=== PATIENT | female | born 1955 | race Caucasian/White ===

== ENCOUNTER → 2017-05-25 | Outpatient (CLI) | payer BC ==
[~2017-05-25] MED LIST: ACET325 PO; ALBU90OI61 INH; ANAS1 PO; CALCIUM PO; CLON.5 PO; GUAI600T33 PO; IBUP400 PO; LEVFLO500 PO; PRED20 PO; PROBIOTIC1 EAC1 PO; Prednisone20 MG PO; VENLAFAXINE HCL75 MG PO; VITAMIN D-32000 UNIT PO; Zithromax250 MG PO
[2017-05-27 12:03] LABS: HPV Genotype 16 Not Detected (NOTDET); HPV Genotype 18 Not Detected (NOTDET)
[2017-06-14 09:50] LABS: HPV High Risk Other Not Detected (NOTDET)
== END | disposition home or self-care (01) ==
LOC: LAB 15:38
PROVIDERS: Obstetrics & Gynecology Gynecology
DX: Z12.4 Encounter for screening for malignant neoplasm of cervix (principal)
CPT/HCPCS: 87624; G0123

== ENCOUNTER 2018-12-22 11:32 | Emergency (ER) | payer MEDICARE, OTHER ==
[~2018-12-22] VITALS: Ht 162.6 cm; Wt 63.5 kg
[2018-12-22 12:31] LABS: BASOPHILS ABSOLUTE AUTO 0.07 K/mm3 (0.00-0.23); BASOPHILS PERCENT AUTO 1 % (0-2); EOSINOPHILS ABSOLUTE AUTO 0.11 K/mm3 (0.00-0.68); EOSINOPHILS PERCENT AUTO 1 % (0-6); Hematocrit 46.5 % (33.0-51.0); Hemoglobin 15.2 g/dL (11.5-16.0); IMMATURE GRAN ABSOLUTE AUTO 0.03 K/mm3 (0.00-0.10); IMMATURE GRAN PERCENT AUTO 0 % (0-1); LYMPHOCYTES ABSOLUTE AUTO 0.88 K/mm3 (0.84-5.20); LYMPHOCYTES PERCENT AUTO 7 % (21-46); MONOCYTES ABSOLUTE AUTO 1.35 K/mm3 (0.16-1.47); MONOCYTES PERCENT AUTO 11 % (4-13); Mean Corpuscular HGB 31.3 pg (26.0-34.0); Mean Corpuscular HGB Conc 32.7 g/dL (31.5-36.5); Mean Corpuscular Volume 96 fL (80-100); Mean Platelet Volume 10.7 fL (9.1-12.4); NEUTROPHILS ABSOLUTE AUTO 9.63 K/mm3 (1.96-9.15); NEUTROPHILS PERCENT AUTO 80 % (41-73); Platelet Count 189 K/mm3 (150-400); RDW Coefficient Variation 13.1 % (11.7-14.2); RDW Standard Deviation 46.7 fL (35.1-46.3); Red Blood Cell Count 4.86 M/mm3 (3.80-5.20); White Blood Cell Count 12.07 K/mm3 (4.00-11.30)
[2018-12-22 12:44] LABS: Alanine Aminotransfer (ALT/SGP 15 U/L (12-78); Albumin, Blood 3.6 g/dL (3.4-5.0); Alk Phos 97 U/L (50-136); Anion Gap 4 mmol/L (6-16); Aspartate Aminotrans (AST/SGOT 15 U/L (12-37); Bilirubin, Total 0.9 mg/dL (0.1-1.0); Blood Urea Nitrogen 10 mg/dL (8-24); Bun/Creatinine Ratio 14.3 (12.0-20.0); CO2, Blood 27 mmol/L (21-32); Calcium, Blood 9.1 mg/dL (8.5-10.1); Chloride, Blood 107 mmol/L (98-108); Globulin, Blood 3.7 g/dL (2.2-4.0); Glomerular Filtration Rate >60 (60-); Glucose, Blood 102 mg/dL (70-99); Potassium, Blood 4.2 mmol/L (3.5-5.5); Sodium, Blood 138 mmol/L (136-145); Total Protein, Blood 7.3 g/dL (6.4-8.2)
[2018-12-22] MEDS ORDERED: NYST237S MT (14:03)
== END 2018-12-22 14:11 | disposition home or self-care (01) ==
LOC: ER 11:32
PROVIDERS: Physician Assistant
DX: J02.9 Acute pharyngitis, unspecified (principal); J38.7 Other diseases of larynx; Z88.8 Allergy status to other drugs, medicaments and biological substances; Z79.899 Other long term (current) drug therapy; Z79.52 Long term (current) use of systemic steroids; J44.9 Chronic obstructive pulmonary disease, unspecified; Z85.3 Personal history of malignant neoplasm of breast; F17.210 Nicotine dependence, cigarettes, uncomplicated
CPT/HCPCS: 70491; 80053; 85025; 87081; 87430; 96360-59; 99284-25; J1100; J7120; Q9967

== ENCOUNTER 2019-09-23 17:11 | Emergency (ER) | payer MEDICARE, OTHER ==
[~2019-09-23] VITALS: Ht 162.6 cm; Wt 61.2 kg
[~2019-09-23 17:11] MED LIST changes: +NYST237S MT
[2019-09-23] MEDS ORDERED: Robaxin-750750 MG PO (18:49)
== END 2019-09-23 19:10 | disposition home or self-care (01) ==
LOC: ER 17:11
DX: M79.662 Pain in left lower leg (principal); Z88.8 Allergy status to other drugs, medicaments and biological substances; Z88.6 Allergy status to analgesic agent; Z79.899 Other long term (current) drug therapy; J44.9 Chronic obstructive pulmonary disease, unspecified; Z85.3 Personal history of malignant neoplasm of breast; F17.210 Nicotine dependence, cigarettes, uncomplicated
CPT/HCPCS: 93971; 99283-25; A9270

== ENCOUNTER → 2021-06-28 | Outpatient (CLI) | payer MEDICARE, OTHER ==
[~2021-06-28] MED LIST changes: +Robaxin-750750 MG PO
[2021-06-28 13:50] LABS: BASOPHILS ABSOLUTE AUTO 0.06 K/mm3 (0.00-0.23); BASOPHILS PERCENT AUTO 1 % (0-2); EOSINOPHILS ABSOLUTE AUTO 0.11 K/mm3 (0.00-0.68); EOSINOPHILS PERCENT AUTO 2 % (0-6); Hematocrit 44.2 % (33.0-51.0); Hemoglobin 14.6 g/dL (11.5-16.0); IMMATURE GRAN ABSOLUTE AUTO 0.01 K/mm3 (0.00-0.10); IMMATURE GRAN PERCENT AUTO 0 % (0-1); LYMPHOCYTES ABSOLUTE AUTO 1.37 K/mm3 (0.84-5.20); LYMPHOCYTES PERCENT AUTO 20 % (21-46); MONOCYTES ABSOLUTE AUTO 0.57 K/mm3 (0.16-1.47); MONOCYTES PERCENT AUTO 8 % (4-13); Mean Corpuscular HGB 30.9 pg (26.0-34.0); Mean Corpuscular Volume 93 fL (80-100); Mean Platelet Volume 10.7 fL (9.1-12.4); NEUTROPHILS ABSOLUTE AUTO 4.88 K/mm3 (1.96-9.15); NEUTROPHILS PERCENT AUTO 70 % (41-73); Platelet Count 206 K/mm3 (150-400); RDW Coefficient Variation 13.3 % (11.7-14.2); RDW Standard Deviation 45.9 fL (35.1-46.3); Red Blood Cell Count 4.73 M/mm3 (3.80-5.20)
[2021-06-28 14:02] LABS: Alanine Aminotransfer (ALT/SGP 26 U/L (12-78); Albumin/Globulin Ratio 1.3 (0.8-1.8); Alk Phos 77 U/L (40-126); Anion Gap 11 mmol/L (6-16); Aspartate Aminotrans (AST/SGOT 20 U/L (12-37); Bilirubin, Total 0.7 mg/dL (0.1-1.0); Blood Urea Nitrogen 16 mg/dL (8-24); Bun/Creatinine Ratio 22.2 (12.0-20.0); CO2, Blood 27 mmol/L (21-32); Calcium, Blood 9.2 mg/dL (8.5-10.1); Chloride, Blood 101 mmol/L (98-108); Creatinine, Blood 0.72 mg/dL (0.40-1.00); Globulin, Blood 3.1 g/dL (2.2-4.0); Glomerular Filtration Rate >60 (60-); Glucose, Blood 73 mg/dL (70-99); Potassium, Blood 4.4 mmol/L (3.5-5.5); Sodium, Blood 139 mmol/L (136-145); Total Protein, Blood 7.1 g/dL (6.4-8.2)
== END ==
LOC: LAB SHORT 13:43
PROVIDERS: Physician Assistant
DX: R50.9 Fever, unspecified (principal)
CPT/HCPCS: 80053; 85025

== ENCOUNTER 2021-08-04 20:31 | Inpatient (IN) | payer MEDICARE, OTHER ==
[~2021-08-04] VITALS: Ht 162.6 cm; Wt 54.2 kg
[2021-08-04 21:19] LABS: BASOPHILS ABSOLUTE AUTO 0.01 K/mm3 (0.00-0.23); BASOPHILS PERCENT AUTO 0 % (0-2); EOSINOPHILS PERCENT AUTO 0 % (0-6); Hematocrit 41.6 % (33.0-51.0); Hemoglobin 13.5 g/dL (11.5-16.0); IMMATURE GRAN ABSOLUTE AUTO 0.02 K/mm3 (0.00-0.10); IMMATURE GRAN PERCENT AUTO 0 % (0-1); LYMPHOCYTES ABSOLUTE AUTO 0.56 K/mm3 (0.84-5.20); LYMPHOCYTES PERCENT AUTO 9 % (21-46); MONOCYTES ABSOLUTE AUTO 0.11 K/mm3 (0.16-1.47); MONOCYTES PERCENT AUTO 2 % (4-13); Mean Corpuscular HGB 29.7 pg (26.0-34.0); Mean Corpuscular HGB Conc 32.5 g/dL (31.5-36.5); Mean Corpuscular Volume 92 fL (80-100); Mean Platelet Volume 10.4 fL (9.1-12.4); NEUTROPHILS ABSOLUTE AUTO 5.51 K/mm3 (1.96-9.15); NEUTROPHILS PERCENT AUTO 89 % (41-73); Platelet Count 225 K/mm3 (150-400); RDW Coefficient Variation 12.9 % (11.7-14.2); RDW Standard Deviation 43.5 fL (35.1-46.3); Red Blood Cell Count 4.54 M/mm3 (3.80-5.20); White Blood Cell Count 6.21 K/mm3 (4.00-11.30)
[2021-08-04 21:39] LABS: Alanine Aminotransfer (ALT/SGP 22 U/L (12-78); Albumin, Blood 3.7 g/dL (3.4-5.0); Alk Phos 78 U/L (50-136); Anion Gap 6 mmol/L (6-16); Aspartate Aminotrans (AST/SGOT 14 U/L (12-37); Bilirubin, Total 0.3 mg/dL (0.1-1.0); Blood Urea Nitrogen 20 mg/dL (8-24); Bun/Creatinine Ratio 38.3 (12.0-20.0); CO2, Blood 27 mmol/L (21-32); Calcium, Blood 9.7 mg/dL (8.5-10.1); Chloride, Blood 105 mmol/L (98-108); Creatinine, Blood 0.52 mg/dL (0.40-1.00); Globulin, Blood 3.8 g/dL (2.2-4.0); Glomerular Filtration Rate >60 (60-); Glucose, Blood 158 mg/dL (70-99); Sodium, Blood 138 mmol/L (136-145); Total Protein, Blood 7.5 g/dL (6.4-8.2)
[2021-08-04 23:32] LABS: PCO2 Venous 45.9 mmHg (38-42); PO2 Venous 46.7 mmHg (38-42); pH Blood Venous 7.41 (7.34-7.37)
[2021-08-05 02:53] LABS: Influenza A, PCR NEGATIVE (NEGATIVE); Influenza B, PCR NEGATIVE (NEGATIVE); Resp Syncytial Virus, PCR NEGATIVE (NEGATIVE); SARS-Cov-2 (COVID-19) PCR, MMC NEGATIVE (NEGATIVE)
[2021-08-05] MEDS ORDERED: B-12500 MC2 PO (03:02)
[2021-08-05] MEDS ORDERED: CALCIUM 500 MG1 EAC2 PO (03:02)
[2021-08-05 05:08] LABS: BASOPHILS ABSOLUTE AUTO 0.01 K/mm3 (0.00-0.23); BASOPHILS PERCENT AUTO 0 % (0-2); EOSINOPHILS PERCENT AUTO 0 % (0-6); Hematocrit 40.5 % (33.0-51.0); Hemoglobin 12.9 g/dL (11.5-16.0); IMMATURE GRAN ABSOLUTE AUTO 0.01 K/mm3 (0.00-0.10); IMMATURE GRAN PERCENT AUTO 0 % (0-1); LYMPHOCYTES ABSOLUTE AUTO 0.54 K/mm3 (0.84-5.20); LYMPHOCYTES PERCENT AUTO 10 % (21-46); MONOCYTES ABSOLUTE AUTO 0.08 K/mm3 (0.16-1.47); MONOCYTES PERCENT AUTO 2 % (4-13); Mean Corpuscular HGB 29.4 pg (26.0-34.0); Mean Corpuscular HGB Conc 31.9 g/dL (31.5-36.5); Mean Corpuscular Volume 92 fL (80-100); Mean Platelet Volume 10.8 fL (9.1-12.4); NEUTROPHILS ABSOLUTE AUTO 4.66 K/mm3 (1.96-9.15); NEUTROPHILS PERCENT AUTO 88 % (41-73); Platelet Count 221 K/mm3 (150-400); RDW Standard Deviation 44.8 fL (35.1-46.3); Red Blood Cell Count 4.39 M/mm3 (3.80-5.20)
[2021-08-05 05:42] LABS: Alanine Aminotransfer (ALT/SGP 20 U/L (12-78); Albumin, Blood 3.7 g/dL (3.4-5.0); Albumin/Globulin Ratio 1.1 (0.8-1.8); Alk Phos 76 U/L (50-136); Anion Gap 7 mmol/L (6-16); Aspartate Aminotrans (AST/SGOT 18 U/L (12-37); Bilirubin, Total 0.4 mg/dL (0.1-1.0); Blood Urea Nitrogen 20 mg/dL (8-24); CO2, Blood 26 mmol/L (21-32); Calcium, Blood 9.1 mg/dL (8.5-10.1); Chloride, Blood 103 mmol/L (98-108); Creatinine, Blood 0.54 mg/dL (0.40-1.00); Globulin, Blood 3.5 g/dL (2.2-4.0); Glomerular Filtration Rate >60 (60-); Glucose, Blood 153 mg/dL (70-99); Potassium, Blood 3.9 mmol/L (3.5-5.5); Sodium, Blood 136 mmol/L (136-145); Total Protein, Blood 7.2 g/dL (6.4-8.2)
--- NOTE | 2021-08-05 06:24 | NUR ---
SHIFT SUMMARY PT WAS A NEW ADMIT DURING THE NIGHT, ARRIVING ON THE FLOOR AT 0245. PT WAS ADMITTED FOR COPD EXACERBATION, CURRENTLY ON 4L O2 VIA NC, INCREASED FROM HER BASELINE AT 2L VIA NC. A&O X 4, SBA TO THE BATHROOM. PT REPORTS INCREASED SOB, DYSPNEA WITH EXERTION, AND COUGH. VITAL SIGNS STABLE. NO C/O ACUTE PAIN OR NAUSEA. NO OTHER ACUTE CHANGES IN PT CONDITION NOTED SINCE ADMISSION. WILL CONTINUE TO MONITOR AND TREAT PER EMAR UNTIL HAND OFF TO DAY SHIFT RN.
--- NOTE | 2021-08-05 19:50 | NUR ---
SHIFT SUMMARY PT AWAKE DURING SHIFT REPORT, SITTING UP TO EOB. PT VERY SOB WITH SEVERE DYSPNEA. PT WOULD CALM OFF AND ON FOR A FEW MINUTES, BUT REMAINED SOB. PT REPORTED HAVING TROUBLE KEEPING BREAKFAST AND LUNCH DOWN D/T BREATHING. PT DID MUCH BETTER THIS EVENING. ABLE TO REST SITTING UPRIGHT IN BED AFTER DINNER. PT SPENT MOST OF THE DAY AT THE EOB LEANING ON TABLE TO BREATHE BETTER. PT ON 4L O2 THIS AM; REPORTED BASELINE O2 AT 2L. HX OF COPD AND BREAST CA. PT WAS A 1P ASSIST TO BTHRM FIRST HALF OF DAY, BUT IS NOW ABLE TO BE INDEPENDENT W/O DIFFICULTY. DENIES FURTHER NEEDS. REPORT GIVEN TO ONCOMING RN.
--- NOTE | 2021-08-06 02:53 | NUR ---
PT GAVE PMSEMT TO PROVIDE CARE ON 08/05/21.
--- NOTE | 2021-08-06 03:26 | NUR ---
PT AWAKE DURING MAJORITY OF SHIFT. PT HAD C/O SOB UPON EXERTION WHEN AMBULATING TO BATHROOM WITH FWW UNDER SUPERVISION. RT WAS NOTIFIED AND PROVIDED DUONEB TX WHICH RELIEVED DYSPNEA. PT STATED FEELING NAUSEOUS FROM DAYTIME MEDS AND WAS GIVEN SALTINE CRACKERS WHICH RESOLVED NAUSEA. PT IS ON 5L/NC. PT IS AWAITING PULMONARY CONSULT DURING AM SHIFT. PT IS CURRENTLY AWAKE WATCHING TV IN BED WITH CALL LIGHT WITHIN REACH.
--- NOTE | 2021-08-06 04:21 | NUR ---
I AM IN AGREEMENT WITH NURSING STUDENTS NOTES AND ASSESSMENT
--- NOTE | 2021-08-06 08:00 | NUR ---
pt laying in bed, spouce in room, a/ox3, pleasant and cooperative with care, very dyspnic, but sats are 94% on 5 liters or via n/c, resp even and labored at rest, worse with exertion, lungs sounds are very dim t/o with exp wheezing t/o, no cough noted, hrr, no edema noted, ppp+1, cap refill <3sec, vs stable, afebrile, iv site is clear and patent, s.l., btx4, abd flat soft nontender, voids without diff, skin c/w/d, maew, ambulates indep, sadia, call light in reach.
--- NOTE | 2021-08-06 18:25 | NUR ---
pt sitting on the side of the bed eating dinner, she is breathing easier this evening. Dr. Damon consulted on her today, no further changes this shift. call light in reach.
--- NOTE | 2021-08-06 21:15 | NUR ---
PT GAVE CONSENT TO PROVIDE CARE 08/06/21.
--- NOTE | 2021-08-07 03:33 | NUR ---
PT A&O X 4. VS STABLE. PT STILL HAVING SEVERE DYSPNEA WHEN AMBULATING TO AND FROM BATHROOM. RT Tx RELIEVE SOB STATED BY PT. PT WAS CALM PLEASANT AND COOPERATIVE WITH CARE. PT CURRENTLY SLEEPING WITH CALL LIGHT WITHIN REACH AND BED IN LOW POSITION.
--- NOTE | 2021-08-07 03:56 | NUR ---
I AM IN AGREEMENT WITH NURSING STUDENTS NOTES AND ASSESSMENT
--- NOTE | 2021-08-07 18:13 | NUR ---
SHIFT SUMMARY PATIENT ALERT AND ORIENTED X4, PLEASANT AND COOPERATIVE WITH CARE. PATIENT WAS HAVING A DIFFICULT TIME BREATHING THIS AM. AFTER SOME ADJUSTMENTS WITH TREATMENTS THE PATIENT SEEMED TO DO MUCH BETTER. THE PATIENT IS CURRENTLY ON 4LPM OF 02 VIA NASAL CANNULA. 2LPM OF O2 IS THE PATIENT'S BASELINE AT HOME. MITZI SURESH ORDERED PRN FOR COUGH. THE PATIENT DID NOT HAVE ANOTHER COUGHING EPISODE SINCE RECOVERING THIS MORNING. PATIENT HAS BEEN INDEPENDENT TO THE BATHROOM WITH A FRONT WHEEL WALKER. PATIENT WILL CALL APPROPRIATELY, BED IN LOWEST POSITION. CALL LIGHT WITHIN REACH.
--- NOTE | 2021-08-08 07:23 | NUR ---
SHIFT SUMMARY PT IS A 66 Y/O FEMALE, ADMITTED FOR COPD EXACERBATION. SHE IS A&O X 4, INDEPENDENT IN THE ROOM. PT IS CURRENTLY ON AIRVO, 20L @ 31% O2. PT DESATS QUICKLY WITH ANY EXERTION. NO C/O ACUTE PAIN OR NAUSEA. VITAL SIGNS STABLE. NO ACUTE CHANGES IN PT CONDITION NOTED DURING THE NIGHT. WILL CONTINUE TO MONITOR AND TREAT PER EMAR UNTIL HAND OFF TO DAY SHIFT RN.
--- NOTE | 2021-08-08 17:11 | NUR ---
SHIFT SUMMARY PATIENT IS ALERT AND ORIENTED X4, PLEASANT AND COOPERATIVE WITH CARE. PATIENT IS CURRENTLY ON AIR VO WITH SETTINGS AT 20 LPM AND 32% OF OXYGEN. PATIENT STILL HAS DYSPNEA WITH AMBULATION. ICE PACK GIVEN TO PATIENT FOR MIGRAINE. PATIENT STATED IT HELPED. PATIENT STATES THEY WANT TO TAKE THE LEAST AMOUNT OF MEDICATIONS POSSIBLE. NO ACUTE CHANGES. VITAL SIGNS STABLE. BED IN LOWEST POSITION, CALL LIGHT WITHIN REACH.
--- NOTE | 2021-08-09 06:49 | NUR ---
SHIFT SUMMARY PT IS A 66 Y/O FEMALE, ADMITTED FOR COPD EXACERBATION. SHE IS A&O X 4, INDEPENDENT IN THE ROOM. CURRENTLY ON AIRVO @ 32% FIO2 & 20L, DESATS WITH ANY EXERTION. NO C/O PAIN OR NAUSEA. VITAL SIGNS STABLE. NO ACUTE CHANGES IN PT CONDITION NOTED. WILL CONTINUE TO MONITOR AND TREAT PER EMAR UNTIL HAND OFF TO DAY SHIFT RN.
--- NOTE | 2021-08-09 16:23 | NUR ---
SHIFT SUMMARY PATIENT IS ALERT AND ORIENTED X4, PLEASANT AND COOPERATIVE WITH CARE. THE PATIENT IS CURRENTLY ON AIR VO ON 32% FIO2 AND AT 20 LPM. PATIENT STILL HAS DYSPNEA AND SOB WITH AMBULATION TO THE BATHROOM. THE PATIENT WILL SWITCH TO 4LPM VIA NASAL CANNULA WHILE AMBULATING. THEIR RECOVERY TIME HAS IMPROVED SINCE THIS AM. PATIENT IS INDEPENDENT TO THE BATHROOM. PATIENT CURRENTLY SITTING UP IN BED. NO ACUTE CHANGES THIS SHIFT, VSS. CALL LIGHT WITHIN REACH BED IN LOWEST POSITION.
--- NOTE | 2021-08-10 06:06 | NUR ---
SHIFT SUMMARY PT IS A 66 Y/O FEMALE, ADMITTED FOR COPD EXACERBATION. SHE IS A&O X 4, INDEPENDENT IN THE ROOM. CURRENTLY ON AIRVO ON 20L AND 32% FIO2. VITAL SIGNS STABLE. NO C/O ACUTE PAIN OR NAUSEA. PT IS DYSPNEIC WITH EXERTION, THOUGH IMPROVED FROM THE LAST TWO DAYS. NO OTHER ACUTE CHANGES IN PT CONDITION NOTED DURING THE NIGHT. WILL CONTINUE TO MONITOR AND TREAT PER EMAR UNTIL HAND OFF TO DAY SHIFT RN.
--- NOTE | 2021-08-10 18:30 | NUR ---
SUMMARY- PT ALERT AND ORIENTED. SBA TO BATHROOM. HAD SHOWER TODAY. BECOMES DYSPNIC WITH EXERTION, WEANED FROM AIRVO TO HIGH FLOW 7L TODAY. TOLERATING WELL AND CONT PULSE OXIMITER 95-97%. TOLERATING FOOD AND FLUIDS. LUNGS SOUND DIM THROUGHOUT. SHORT/FREQ BREATHS WITH VERBAL. USING FLUTTER. PRN NEBS HELPFUL FOR SOB AND WHEEZING, USUALLY ACUTE WITH ACTIVITY. ASHLYN EVALUATED PT AT [facility] AND MADE CHANGES TO RESP MEDS. VSS. PT STATES BREATHING IMPROVED SIGNIFICANTLY SINCE ADMIT. WILL REPORT TO NOC
--- NOTE | 2021-08-11 04:17 | NUR ---
PATIENT A/OX4, INITIALLY SOB WHILE AT REST. PT RECEIVED SCHEDULED MEDICATIONS PER JUN, SAT IN A TRIPOD POSITION, AND AFTERWARDS STATED SHE FELT MUCH BETTER. SOB ON EXERTION TO BATHROOM. ON 7L HIGH FLOW NC. NO OTHER ACUTE CHANGES NOTED.
--- NOTE | 2021-08-11 18:30 | NUR ---
SUMMARY- PT A/O X4, GETS UP SBA WITH GOOD STRENGTH TO BATHROOM. DYSPNEA WITH EXERTION. PT HAD ONE ESISOPE SHE WAS SEVERE DYSPNIC EPISODE AFTER BATHROOM TRIP. PT HAD NOT INCREASED OXYGEN PRIOR TO AMBULATION. HAVE DONE TEACHING ON INCREASING OXYGEN BEFORE ACTIVITY. PT USING FLUTTER AND MUCINEX, HAS LOOSE COUGH BUT STATES SHE HASN'T BEEN ABLE TO CLEAR ANY SECRETIONS. LUNGS ARE DIM THROUGH OUT AND OCC INSP/EXP WHEEZE, ROUTINE NEBS. NEDITA STARTED ON LONG ACTING STERIOD MED FOR JOB DEVELOPMENT SPECIALIST TX.
--- NOTE | 2021-08-11 18:45 | NUR ---
SUMMARY- PT ALERT TO SELF AND PLACE, DEPENDANT IN CARE. HAS BEEN INCONT URINE X3. TOLERATING FOOD AND FLUIDS WITH CONTINUAL OBS DURING MEALS- INCREASES DIET TO MECH SOFT, TOLERATING MEALS WITH CONSTANT CUES. FORGETS WHAT SHE IS DOING. NEURO PT IS CONFUSED AND CHILDLIKE. GARBLED SPEECH AT TIMES. FORGETFUL BUT DOESNT TRY TO GET OOB. BED ALERM SET FOR SAFETY. BLOOD SUGARS IN GOOD RANGE BELOW 200, SSRI AC. WILL REPORT TO NOC RN
--- NOTE | 2021-08-12 05:02 | NUR ---
SHIFT SUMMARY NO ACUTE CHANGES TO PT CONDITION. PT STILL BECOMES SOB UPON EXERTION AND REQUIRES MORE O2 THAN WHEN AT REST. PT SLEPT OFF AND ON THROUGHOUT THE NIGHT. CURRENTLY ON 3L HIGH FLOW O2. CALL LIGHT WITHIN REACH AND WILL CONTINUE TO MONITOR.
[2021-08-12] MEDS ORDERED: BENZ100A PO (11:16)
[2021-08-12] MEDS ORDERED: FLUTICASONE-SA1 EAC1 INH (11:18)
[2021-08-12] MEDS ORDERED: GUAI600T33 PO (11:19)
[2021-08-12] MEDS ORDERED: IPRAT-ALBUT 0.5-3 ML INH (11:20)
[2021-08-12] MEDS ORDERED: Methocarbamol500 MG PO (11:21)
[2021-08-12] MEDS ORDERED: METPRE4 PO (11:36)
[2021-08-12] MEDS ORDERED: NYSTATIN100000 U10 MT (11:38)
--- NOTE | 2021-08-12 16:41 | NUR ---
DISCHARGE SUMMARY: PATIENT DENIED PAIN OR DISCOMFORT THROUGHOUT THE MORNING. PATIENT UP TO THE BATHROOM AND UP WITH PT. PATIENT SHORT OF BREATH WITH ACTIVITY, BUT PATIENT TOOK RESTS APPROPRIATELY AND PRACTICED PURSED LIP BREATHING. PATIENT REPORTS THAT SHE IS FEELING WELL ENOUGH TO GO HOME. PATIENT'S AT BEDSIDE. HE IS SUPPORTIVE AND KNOWLEDGEABLE OF THE CARE THAT SHE WILL REQUIRE. PATIENT CONTINUES TO HAVE A MOIST, NON-PRODUCTIVE COUGH. PATIENT DISHCHARGED WITH A FLUTTER VALVE THAT SHE REPORTS SHE WILL USE. DISCHARGE RX FAXED TO PHARMACY PER PATIENT'S REQUEST. PATIENT HAS A FOLLOW-UP APPOINTMENT AT [facility] TOMORROW MORNING. DISCHARGE INSTRUCTIONS PROVIDED TO PATIENT AND , THEY REPORT UNDERSTANDING. ALL QUESTIONS AND CONCERNS ADDRESSED. PATIENT DISCHARGED IN WHEELCHAIR WITH HOME O2. PATIENT STABLE AT TIME OF DISCHARGE.
== END 2021-08-12 12:55 | disposition home health service (06) | DRG 189 ==
LOC: ER 20:31 → MEDS 20:32
PROVIDERS: Family Medicine; Physician Assistant; Student in an Organized Health Care Education/Training Program; ADMIT Internal Medicine
DX: J96.21 Acute and chronic respiratory failure with hypoxia (principal); J43.9 Emphysema, unspecified; Z88.6 Allergy status to analgesic agent; Z88.8 Allergy status to other drugs, medicaments and biological substances; Z85.3 Personal history of malignant neoplasm of breast; F41.9 Anxiety disorder, unspecified; Z20.822 Contact with and (suspected) exposure to COVID-19; F17.210 Nicotine dependence, cigarettes, uncomplicated; Z99.81 Dependence on supplemental oxygen; Z98.890 Other specified postprocedural states; Z79.899 Other long term (current) drug therapy; J20.9 Acute bronchitis, unspecified; M62.838 Other muscle spasm; Z92.3 Personal history of irradiation
CPT/HCPCS: 0241U; 36415; 71045; 80053; 82803; 82947; 84145; 84484; 85025; 93005; 93010; 94640; 94644; 94664; 94667; 94760; 94762; 96365; 96366; 96372; 96374; 96375; 96376; 97110; 97161; 97530; 98960; 99285-25; 99406; 99407; A9270; G0378; J0456; J1650; J1940; J2920; J2930; J3475; J7040; J7060; J7509; J7626

== ENCOUNTER → 2022-06-06 | Outpatient (CLI) | payer MEDICARE, OTHER ==
[~2022-06-06] MED LIST changes: +B-12500 MC2 PO; +BENZ100A PO; +CALCIUM 500 MG1 EAC2 PO; +FLUTICASONE-SA1 EAC1 INH; +IPRAT-ALBUT 0.5-3 ML INH; +METPRE4 PO; +MONDOXYNE NL100 MG PO; +MONT10T PO; +Methocarbamol500 MG PO; +NYSTATIN100000 U10 MT; +Ventolin/Prove6.7 GM INH
[2022-06-06 12:26] LABS: Albumin, Blood 3.7 g/dL (3.4-5.0); Bilirubin, Total 0.4 mg/dL (0.1-1.0); Bun/Creatinine Ratio 14.5 (12.0-20.0); Creatinine, Blood 0.62 mg/dL (0.40-1.00); Globulin, Blood 3.6 g/dL (2.2-4.0); Total Protein, Blood 7.3 g/dL (6.4-8.2)
[2022-06-06 12:32] LABS: Hematocrit 41.6 % (33.0-51.0); Hemoglobin 13.7 g/dL (11.5-16.0); Mean Corpuscular Volume 92 fL (80-100); Red Blood Cell Count 4.51 M/mm3 (3.80-5.20); White Blood Cell Count 5.63 K/mm3 (4.00-11.30)
[2022-06-06 12:33] LABS: BASOPHILS PERCENT AUTO 1 % (0-2); EOSINOPHILS PERCENT AUTO 1 % (0-6); IMMATURE GRAN PERCENT AUTO 0 % (0-1); LYMPHOCYTES PERCENT AUTO 18 % (21-46); MONOCYTES PERCENT AUTO 14 % (4-13); Mean Corpuscular HGB 30.4 pg (26.0-34.0); Mean Corpuscular HGB Conc 32.9 g/dL (31.5-36.5); Mean Platelet Volume 10.9 fL (9.1-12.4); NEUTROPHILS PERCENT AUTO 66 % (41-73); Platelet Count 178 K/mm3 (150-400); RDW Coefficient Variation 13.3 % (11.7-14.2); RDW Standard Deviation 45.5 fL (35.1-46.3)
[2022-06-06 12:34] LABS: BASOPHILS ABSOLUTE AUTO 0.05 K/mm3 (0.00-0.23); EOSINOPHILS ABSOLUTE AUTO 0.05 K/mm3 (0.00-0.68); IMMATURE GRAN ABSOLUTE AUTO 0.01 K/mm3 (0.00-0.10); LYMPHOCYTES ABSOLUTE AUTO 1.01 K/mm3 (0.84-5.20); MONOCYTES ABSOLUTE AUTO 0.78 K/mm3 (0.16-1.47); NEUTROPHILS ABSOLUTE AUTO 3.73 K/mm3 (1.96-9.15)
== END | disposition home or self-care (01) ==
LOC: LAB 12:11 → LAB SHORT 12:11
PROVIDERS: Physician Assistant
DX: R07.9 Chest pain, unspecified (principal); Z85.3 Personal history of malignant neoplasm of breast
CPT/HCPCS: 80053; 83880; 84484; 85025; 85379

== ENCOUNTER 2022-06-09 18:14 | Inpatient (IN) | payer MEDICARE, OTHER ==
[~2022-06-09] VITALS: Ht 167.6 cm; Wt 61.0 kg
[~2022-06-09 18:14] MED LIST changes: -MONDOXYNE NL100 MG PO; -MONT10T PO; -Ventolin/Prove6.7 GM INH
[2022-06-09 18:42] LABS: BASOPHILS ABSOLUTE AUTO 0.02 K/mm3 (0.00-0.23); BASOPHILS PERCENT AUTO 0 % (0-2); EOSINOPHILS PERCENT AUTO 0 % (0-6); Hematocrit 41.5 % (33.0-51.0); Hemoglobin 13.7 g/dL (11.5-16.0); IMMATURE GRAN ABSOLUTE AUTO 0.03 K/mm3 (0.00-0.10); IMMATURE GRAN PERCENT AUTO 0 % (0-1); LYMPHOCYTES ABSOLUTE AUTO 1.14 K/mm3 (0.84-5.20); LYMPHOCYTES PERCENT AUTO 13 % (21-46); MONOCYTES ABSOLUTE AUTO 0.14 K/mm3 (0.16-1.47); MONOCYTES PERCENT AUTO 2 % (4-13); Mean Corpuscular HGB 30.2 pg (26.0-34.0); Mean Corpuscular Volume 91 fL (80-100); Mean Platelet Volume 11.1 fL (9.1-12.4); NEUTROPHILS ABSOLUTE AUTO 7.71 K/mm3 (1.96-9.15); NEUTROPHILS PERCENT AUTO 85 % (41-73); Platelet Count 245 K/mm3 (150-400); RDW Standard Deviation 44.5 fL (35.1-46.3); Red Blood Cell Count 4.54 M/mm3 (3.80-5.20); White Blood Cell Count 9.04 K/mm3 (4.00-11.30)
[2022-06-09 18:43] LABS: Bicarbonate Venous 25.3 mmol/L (24.0-30.0)
[2022-06-09 18:44] LABS: pH Blood Venous 7.27 (7.34-7.37)
[2022-06-09 18:46] LABS: Base Excess Venous 3.2 mmol/L
[2022-06-09 18:56] LABS: Albumin, Blood 3.7 g/dL (3.4-5.0); Albumin/Globulin Ratio 1.1 (0.8-1.8); Bilirubin, Total 0.4 mg/dL (0.1-1.0); Calcium, Blood 9.1 mg/dL (8.5-10.1); Creatinine, Blood 0.51 mg/dL (0.40-1.00); Globulin, Blood 3.5 g/dL (2.2-4.0); Potassium, Blood 4.4 mmol/L (3.5-5.5); Total Protein, Blood 7.2 g/dL (6.4-8.2)
[2022-06-09 19:46] LABS: Influenza A, PCR NEGATIVE (NEGATIVE); Influenza B, PCR NEGATIVE (NEGATIVE); Resp Syncytial Virus, PCR NEGATIVE (NEGATIVE); SARS-Cov-2 (COVID-19) PCR, MMC NEGATIVE (NEGATIVE)
[2022-06-09] MEDS ORDERED: MONT10T PO (22:28)
[2022-06-09] MEDS ORDERED: MONDOXYNE NL100 MG PO (22:29)
[2022-06-09] MEDS ORDERED: Ventolin/Prove6.7 GM INH (22:29)
--- NOTE | 2022-06-09 22:53 | NUR ---
PT ADMITTED TO PCU 02 PT CAME TO ROOM AND REQUIRED 4P SLIDE FROM GURNEY TO BED. PT HAD RT MANAGING HER BIPAP. SHE IS ON 12/6 @ 14, W/ 2L BLEED THROUGH. PT WAS VERY ANXIOUS AND PULLING AT HER BIPAP. A ONE TIME ORDER OF 1MG ATIVAN IV WAS GIVEN TO HELP CALM THE PT DOWN. THE ER STATED THAT THE PT DID NOT TOLERATE BEING OFF THE BIPAP W/O HAVING A FEELING OF IMPENDING DOOM, SO SHE WILL BE NPO UNTIL FURTHER NOTICE. PT WAS TOO ANXIOUS TO COMPLETE HER ADMISSION HX AND SHE STATED THAT HER MEDICAITON LIST IS IN HER PURSE, WHICH HER TOOK HOME. BED ALARM IS ON THE PT AND SHE WAS ORIENTED TO THE ROOM. SEE NOTES FOR ANY UPDATES. WAITING FOR TO SEE THE PT AND PUT IN ADMISSION ORDERS AT THIS TIME.
[2022-06-10 03:53] LABS: BASOPHILS ABSOLUTE AUTO 0.01 K/mm3 (0.00-0.23); BASOPHILS PERCENT AUTO 0 % (0-2); EOSINOPHILS PERCENT AUTO 0 % (0-6); Hematocrit 38.4 % (33.0-51.0); Hemoglobin 12.6 g/dL (11.5-16.0); IMMATURE GRAN ABSOLUTE AUTO 0.02 K/mm3 (0.00-0.10); IMMATURE GRAN PERCENT AUTO 0 % (0-1); LYMPHOCYTES ABSOLUTE AUTO 0.99 K/mm3 (0.84-5.20); LYMPHOCYTES PERCENT AUTO 15 % (21-46); MONOCYTES ABSOLUTE AUTO 0.09 K/mm3 (0.16-1.47); MONOCYTES PERCENT AUTO 1 % (4-13); Mean Corpuscular HGB 29.9 pg (26.0-34.0); Mean Corpuscular HGB Conc 32.8 g/dL (31.5-36.5); Mean Corpuscular Volume 91 fL (80-100); Mean Platelet Volume 10.9 fL (9.1-12.4); NEUTROPHILS ABSOLUTE AUTO 5.54 K/mm3 (1.96-9.15); NEUTROPHILS PERCENT AUTO 83 % (41-73); Platelet Count 205 K/mm3 (150-400); RDW Coefficient Variation 13.2 % (11.7-14.2); RDW Standard Deviation 43.8 fL (35.1-46.3); Red Blood Cell Count 4.22 M/mm3 (3.80-5.20); White Blood Cell Count 6.65 K/mm3 (4.00-11.30)
[2022-06-10 04:23] LABS: Albumin, Blood 3.4 g/dL (3.4-5.0); Bilirubin, Total 0.3 mg/dL (0.1-1.0); Bun/Creatinine Ratio 41.5 (12.0-20.0); Calcium, Blood 8.5 mg/dL (8.5-10.1); Creatinine, Blood 0.63 mg/dL (0.40-1.00); Globulin, Blood 3.3 g/dL (2.2-4.0); Potassium, Blood 3.9 mmol/L (3.5-5.5); Total Protein, Blood 6.7 g/dL (6.4-8.2)
--- NOTE | 2022-06-10 05:24 | NUR ---
SHIFT SUMMARY PT IS A&OX4 BUT HAS BEEN VERY ANXIOUS THIS SHIFT. SEE ADMISSION NOTE FOR MORE INFORMATION. SINCE BEING MEDICATED W/ 1MG ATIVAN IV SE HAS BEEN PULLING AT HER BIPAP LESS, AND HAS BEEN SLEEPING MOST OF THE SHIFT. THE PT IS DROGGY BUT AROUSABLE TO VERBAL STIMULI. PT STATES SHE KNOWS WHEN SHE HAS TO USE THE RESTROOM AND WILL CALL FOR HELP WHEN SHE NEEDS TO GO. SHE HAS BEEN ABLE TO USE HER CALL LIGHT APPROPRIATELY. ON TELE THE PT HAS BEEN SR 80'S AND SPO2 >95% ON BIPAP 14/6 4L. SHE WAS COMPLAINTING OF CHEST TIGHTNESS WHEN SHE WAS ARRIVED TO PCU BUT HAS NOT COMPLAINED OF IT SINCE BEING MEDICATED. THE PT GETS WORKED UP EASY BUT IS REDIRECTABLE AND COOPERATIVE WITH CARE. BED ALARM ON, BED IN LOW, AND CALL LIGHT IN REACH. I WILL CONTINUE TO MONITOR UNTIL SHIFT REPORT IS GIVEN TO THE ONOCMING SHIFT RN. SEE NOTES FOR ANY UPDATES.
--- NOTE | 2022-06-10 18:31 | NUR ---
End of shift. Pt has been resting in bed for much of the day. Pt has been on and off bipap depending on resp status. Significant amount of anxiety but is able to resolve with staff support, no PRN meds given this shift. MD was phoned per Pt request for guaifenesin order. Vital stable except O2 needs with anxiety but resolves with bipap and support. Pt has been a 1-2p assist to BSC due to resp status. Pt is able to make needs known, call light is within reach.
--- NOTE | 2022-06-11 05:16 | NUR ---
Assumed care of pt at 1900. A/Ox4. At times very anxious related with a feeling of air hunger. Sats over 95% on 4L NC or Bipap 03/09 4L, patient wore bipap on and off t/o the night. Medicated for anxiety per emar with good relief. LS expiratory wheezes in upper lobes and dim at bases, GROSS an tachypneic in low 20's at times. SR 90's on tele. Denies CP/pressure, VSS. Hypoactive bowel tones x4. Patient was able to sleep for most of the night. Will report to dayshift RN.
--- NOTE | 2022-06-11 18:35 | NUR ---
END OF SHIFT SUMMARY. PT HAS BEEN VERY SLEEPY FOR MUCH OF THE DAY. PT FATIGUES EASILTY WITH ANY MOVEMENT OR REPOSITIONING. SIGNIFICANT WHEEZES. PT HAS SPENT MORE TIME ON THE BIPAP COMPARED TO YESTERDAY. PT HAS HAD MULTIPLE EPISODES OF ANXIETY BUT HAS BEEN ABLE TO RESOLVE WITH STAFF SUPPORT AND GOOD BREATHING TECHNIQUES. NO PRN ATIVAN HAS BEEN GIVEN THIS SHIFT. PT OOB TO THE BSC TO VOID. FAIR PO INTAKE, ENSURE SHAKES ENCOURAGED.
[2022-06-12 04:17] LABS: BASOPHILS ABSOLUTE AUTO 0.02 K/mm3 (0.00-0.23); BASOPHILS PERCENT AUTO 0 % (0-2); EOSINOPHILS PERCENT AUTO 0 % (0-6); Hematocrit 37.8 % (33.0-51.0); Hemoglobin 12.3 g/dL (11.5-16.0); IMMATURE GRAN ABSOLUTE AUTO 0.14 K/mm3 (0.00-0.10); IMMATURE GRAN PERCENT AUTO 1 % (0-1); LYMPHOCYTES ABSOLUTE AUTO 1.17 K/mm3 (0.84-5.20); LYMPHOCYTES PERCENT AUTO 8 % (21-46); MONOCYTES ABSOLUTE AUTO 0.57 K/mm3 (0.16-1.47); MONOCYTES PERCENT AUTO 4 % (4-13); Mean Corpuscular HGB 30.2 pg (26.0-34.0); Mean Corpuscular HGB Conc 32.5 g/dL (31.5-36.5); Mean Corpuscular Volume 93 fL (80-100); Mean Platelet Volume 10.8 fL (9.1-12.4); NEUTROPHILS ABSOLUTE AUTO 12.72 K/mm3 (1.96-9.15); NEUTROPHILS PERCENT AUTO 87 % (41-73); Platelet Count 236 K/mm3 (150-400); RDW Coefficient Variation 13.3 % (11.7-14.2); RDW Standard Deviation 45.2 fL (35.1-46.3); Red Blood Cell Count 4.07 M/mm3 (3.80-5.20); White Blood Cell Count 14.62 K/mm3 (4.00-11.30)
[2022-06-12 04:37] LABS: Albumin, Blood 3.2 g/dL (3.4-5.0); Bilirubin, Total 0.4 mg/dL (0.1-1.0); Calcium, Blood 9.3 mg/dL (8.5-10.1); Creatinine, Blood 0.61 mg/dL (0.40-1.00); Globulin, Blood 3.2 g/dL (2.2-4.0); Potassium, Blood 4.5 mmol/L (3.5-5.5); Total Protein, Blood 6.4 g/dL (6.4-8.2)
--- NOTE | 2022-06-12 06:11 | NUR ---
SHIFT SUMMARY A/OX4, 1P ASSIST TO BSC. TELE SR IN THE 90S. DENIES CHEST PAIN/PRESSURE. SPO2 >90% ON 4L NC. SLEPT T/O THE NIGHT. VSS, NO ACUTE CHANGES AT THIS TIME. BED IN LOWEST POSITION WITH CALL LIGHT IN REACH. WILL CONTINUE TO MONITOR AND REPORT TO ONCOMING RN.
--- NOTE | 2022-06-12 17:59 | NUR ---
END OF SHIFT NOTE PT A&O X4. VSS. PT SOB W/ GETTING UP TO BSC. SPO2 > 90% ON 3-4L NC THIS SHIFT, WEARING BIPAP WHEN WORK OF BREATHING INCREASING. MONITOR SHOWING SR-ST, HR 80s-110. PT SLEEPING OFF & ON T/O DAY, STATING "I DON'T KNOW WHY I'M SO TIRED." NO EVENTS THIS SHIFT.
[2022-06-13 04:43] LABS: BASOPHILS ABSOLUTE AUTO 0.03 K/mm3 (0.00-0.23); BASOPHILS PERCENT AUTO 0 % (0-2); EOSINOPHILS PERCENT AUTO 0 % (0-6); Hematocrit 38.9 % (33.0-51.0); Hemoglobin 12.7 g/dL (11.5-16.0); IMMATURE GRAN ABSOLUTE AUTO 0.19 K/mm3 (0.00-0.10); IMMATURE GRAN PERCENT AUTO 2 % (0-1); LYMPHOCYTES PERCENT AUTO 8 % (21-46); MONOCYTES ABSOLUTE AUTO 0.61 K/mm3 (0.16-1.47); MONOCYTES PERCENT AUTO 5 % (4-13); Mean Corpuscular HGB 30.1 pg (26.0-34.0); Mean Corpuscular HGB Conc 32.6 g/dL (31.5-36.5); Mean Corpuscular Volume 92 fL (80-100); Mean Platelet Volume 10.4 fL (9.1-12.4); NEUTROPHILS ABSOLUTE AUTO 11.16 K/mm3 (1.96-9.15); NEUTROPHILS PERCENT AUTO 85 % (41-73); Platelet Count 249 K/mm3 (150-400); RDW Coefficient Variation 13.3 % (11.7-14.2); RDW Standard Deviation 45.2 fL (35.1-46.3); Red Blood Cell Count 4.22 M/mm3 (3.80-5.20); White Blood Cell Count 13.09 K/mm3 (4.00-11.30)
[2022-06-13 05:19] LABS: Bun/Creatinine Ratio 55.7 (12.0-20.0); Calcium, Blood 9.1 mg/dL (8.5-10.1); Creatinine, Blood 0.63 mg/dL (0.40-1.00); Potassium, Blood 4.2 mmol/L (3.5-5.5)
--- NOTE | 2022-06-13 05:52 | NUR ---
SHIFT SUMMARY A/OX4, 1P ASSIST TO BSC. TELE SR IN THE 90S. DENIES CHEST PAIN/PRESSURE. SPO2 >90% ON 4L NC CURRENTLY. PT INCREASINGLY ANXIOUS AND HAVING DIFFICULTY TOLERATING BIPAP MASK AT BEGINNING OF SHIFT, PRN ATIVAN GIVEN. VSS, NO ACUTE CHANGES AT THIS TIME. BED IN LOWEST POSITION WITH CALL LIGHT IN REACH. WILL CONTINUE TO MONITOR AND REPORT TO ONCOMING RN.
--- NOTE | 2022-06-13 17:50 | NUR ---
SHIFT SUMMARY ASSUMED CARE OF PT AT 0700 THIS AM. NO ACUTE CHANGES T/O THE SHIFT. PT IS NONCOMPLIANT WITH HIS FLUID RESTRICTION. WILL NOT WEAR O2 OR CPAP, SPO2 DROPS TO 70s WHILE SLEEPING. STAFF AWAKEN PT AND HE REFUSES TO PUT O2 OR CPAP ON. HEPARIN GTT CONTINUED T/O THE DAY, LEVEL THERAPUETIC. PLAN FOR CARDIOVERSION TOMORROW. NPO AFTER MN. PT IS ABLE TO USE CALL LIGHT FOR NEEDS, CALL LIGHT IN REACH, WILL CONTINUE TO MONITOR AND GIVE REPORT TO NOC SHIFT RN.
--- NOTE | 2022-06-13 17:55 | NUR ---
SHIFT SUMMARY ASSUMED CARE OF PT AT 0700 THIS AM. PT SLEEPING ON THE BIPAP UNTIL APROX 0930. PT'S SO VISITING, PT AWAKE AND PUT ON NC FOR BREAKFAST. PT ON AND OFF BIPAP ALL DAY. DR CONNOR IN TO SEE PT, PT/OT ORDERED AND PT EVALUATED PT TODAY. NO ACUTE CHANGES. PT ABLE TO USE CALL LIGHT FOR NEEDS, CALL LIGHT IN REACH, WILL CONTINUE TO MONITOR AND GIVE REPORT TO NOC SHIFT RN.
[2022-06-14 04:04] LABS: BASOPHILS ABSOLUTE AUTO 0.03 K/mm3 (0.00-0.23); BASOPHILS PERCENT AUTO 0 % (0-2); EOSINOPHILS PERCENT AUTO 0 % (0-6); Hematocrit 37.5 % (33.0-51.0); Hemoglobin 12.4 g/dL (11.5-16.0); IMMATURE GRAN ABSOLUTE AUTO 0.31 K/mm3 (0.00-0.10); IMMATURE GRAN PERCENT AUTO 2 % (0-1); LYMPHOCYTES PERCENT AUTO 10 % (21-46); MONOCYTES ABSOLUTE AUTO 1.27 K/mm3 (0.16-1.47); MONOCYTES PERCENT AUTO 9 % (4-13); Mean Corpuscular HGB 30.2 pg (26.0-34.0); Mean Corpuscular HGB Conc 33.1 g/dL (31.5-36.5); Mean Corpuscular Volume 91 fL (80-100); Mean Platelet Volume 10.4 fL (9.1-12.4); NEUTROPHILS ABSOLUTE AUTO 10.78 K/mm3 (1.96-9.15); NEUTROPHILS PERCENT AUTO 79 % (41-73); Platelet Count 242 K/mm3 (150-400); RDW Coefficient Variation 13.3 % (11.7-14.2); RDW Standard Deviation 44.6 fL (35.1-46.3); Red Blood Cell Count 4.11 M/mm3 (3.80-5.20); White Blood Cell Count 13.69 K/mm3 (4.00-11.30)
[2022-06-14 04:20] LABS: Bun/Creatinine Ratio 62.3 (12.0-20.0); Calcium, Blood 9.1 mg/dL (8.5-10.1); Creatinine, Blood 0.61 mg/dL (0.40-1.00)
--- NOTE | 2022-06-14 05:13 | NUR ---
SHIFT SUMMARY A/OX4, 1P ASSIST TO BSC. TELE SR IN THE 90S. DENIES CHEST PAIN/PRESSURE. SPO2 >92% ON BIPAP. PT INCREASINGLY ANXIOUS AND HAVING DIFFICULTY TOLERATING BIPAP MASK AT BEGINNING OF SHIFT, PRN ATIVAN GIVEN. VSS, NO ACUTE CHANGES AT THIS TIME. BED IN LOWEST POSITION WITH CALL LIGHT IN REACH. WILL CONTINUE TO MONITOR AND REPORT TO ONCOMING RN.
--- NOTE | 2022-06-14 10:23 | NUR ---
Am note Pt reporting sob and difficulty breathing spo2 80's, ativan administered. Bipap in place. Pt alert, oriented, anxious at times. Pt resting in bed, ind repositions self in bed. Pt denies pain, chest pain/pressure, nausea, dizziness and numb/tingling. Spo2 >90% on 4l o2 via nc this am, ls tight with exp wheeze noted. Tele sinus, bp stable. Abd soft nontender, no bm noted since 06/10. Pt continent/incontinent, attends in place. Other vss. no other acute changes noted. Will continue to monitor.
--- NOTE | 2022-06-14 18:07 | NUR ---
Shift Summary Pt appears to be sleeping t/o shift, encourged activity but pt refusing. Pt on 4-6L o2 via nc t/o shift, intermittently wearing bipap. Other vss. Will continue to monitor.
[2022-06-15 04:24] LABS: BASOPHILS ABSOLUTE AUTO 0.02 K/mm3 (0.00-0.23); BASOPHILS PERCENT AUTO 0 % (0-2); EOSINOPHILS PERCENT AUTO 0 % (0-6); Hematocrit 38.9 % (33.0-51.0); Hemoglobin 12.8 g/dL (11.5-16.0); IMMATURE GRAN ABSOLUTE AUTO 0.22 K/mm3 (0.00-0.10); IMMATURE GRAN PERCENT AUTO 2 % (0-1); LYMPHOCYTES ABSOLUTE AUTO 1.14 K/mm3 (0.84-5.20); LYMPHOCYTES PERCENT AUTO 10 % (21-46); MONOCYTES ABSOLUTE AUTO 0.55 K/mm3 (0.16-1.47); MONOCYTES PERCENT AUTO 5 % (4-13); Mean Corpuscular HGB 30.2 pg (26.0-34.0); Mean Corpuscular HGB Conc 32.9 g/dL (31.5-36.5); Mean Corpuscular Volume 92 fL (80-100); Mean Platelet Volume 10.5 fL (9.1-12.4); NEUTROPHILS ABSOLUTE AUTO 9.26 K/mm3 (1.96-9.15); NEUTROPHILS PERCENT AUTO 83 % (41-73); Platelet Count 240 K/mm3 (150-400); RDW Coefficient Variation 13.4 % (11.7-14.2); RDW Standard Deviation 45.1 fL (35.1-46.3); Red Blood Cell Count 4.24 M/mm3 (3.80-5.20); White Blood Cell Count 11.19 K/mm3 (4.00-11.30)
[2022-06-15 04:51] LABS: Magnesium, Blood 2.5 mg/dL (1.6-2.4)
[2022-06-15 04:52] LABS: Albumin, Blood 3.1 g/dL (3.4-5.0); Bilirubin, Total 0.8 mg/dL (0.1-1.0); Bun/Creatinine Ratio 49.7 (12.0-20.0); Calcium, Blood 8.3 mg/dL (8.5-10.1); Creatinine, Blood 0.58 mg/dL (0.40-1.00); Phosphorus, Blood 4.4 mg/dL (2.5-4.9); Potassium, Blood 4.3 mmol/L (3.5-5.5); Total Protein, Blood 6.1 g/dL (6.4-8.2)
--- NOTE | 2022-06-15 06:16 | NUR ---
SHIFT SUMMARY OVERNIGHT, PATIENT A/0X4. VERY ANXIOUS; MEDICATED WITH PRN XANAX, SEE MAR. ANXIETY WORSENS WITH DYSPNEA. PATIENT ONLY ABLE TO WEAR BIPAP FOR LESS THAN AN HOUR OVERNIGHT BEFORE SAYING STATING THAT THE MASK GIVES HER PANIC ATTACKS AND REFUSED TO WEAR IT. ON 4L NC AT THIS TIME. LUNG SOUNDS TIGHT, INTERMITTENTLY WHEEZY. TELE SHOWING NSR, HR 60-70S. SBP 90-100S. AFEBRILE. UP X2 OVERNIGHT TO BEDSIDE COMMODE. ATTENDS IN PLACE FOR INCONTINENCE EPISODES. REPOSITIONS INDEPENDENTLY IN BED. CALL LIGHT WITHIN REACH. NO FURTHER CONCERNS.
[2022-06-15 09:02] LABS: PCO2 Arterial 50.2 mmHg (35-45); PO2 Arterial 59.3 mmHg (80-100); pH Blood Arterial 7.44 (7.35-7.45)
--- NOTE | 2022-06-15 13:18 | NUR ---
TRANSFER NOTE- PT TRANSFERED FROM PCU2 TO MEDICAL FLOOR. PT CALLED SHORTLY AFTER ARRIVING AND RESPIRATION RATE WAS SHALLOW AN RAPID. PT SITTING IN THE TRIPOD POSSITION , LUNG SOUNDS ARE TIGHT AND WHEEZY. CALLED RT FOR MEDICAL FLOOR. PT REQUESTING HER BIPAP MACHINE. PT BIPAP MACHINE DID NOT TRANSFER WITH HER. RT IS AWARE AND IS GETTING THE BIPAP. ALL OTHER VS ARE STABLE. REQUESTED A BREATHING Tx.
--- NOTE | 2022-06-15 13:29 | NUR ---
SHIFT SUMMARY; ASSUMED CARE AT 0700, A/A/OX4. NC AT 4L. APPEARS LABORED WHEN TALKING. SATS MAINTAINING 92%. DESATS WITH EXERCTION BUT RECOVERS WITH IN A FEW MINUTES. USES BSC WITH SBA, REPOSITIONS SELF IN BED NEEDED. STATUS CHANGED TO MEDICAL TODAY, REPORT TO MERRITT SHAVER ON MEDICAL FLOOR TO ASSUME CARE.
--- NOTE | 2022-06-15 17:10 | NUR ---
MET WITH PT AT BEDSIDE TODAY TO DISCUSS CODE STATUS. 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 SHE ALSO STATES SHE WANTS TO REMAIN A FULL CODE. PALLIATIVE CARE TO REMAIN INVOLVED, WILL RE-EVALUATE PRIOR TO DISCHARGE.
--- NOTE | 2022-06-15 18:15 | NUR ---
SHIFT SUMMARY- PT TRANSFERED TO MEDICAL FLOOR TODAY FROM PCU. PT WORKED WITH PHYSICAL THERAPY WHO RECOMENDED MORE AMBULATION. PT GOT UP AND AMBUALTED TO THE BATHROOM ALLOWING ADEQUATE REST PERIODS BEFORE AND AFTER AMBULATION. SHE TOLLERATED WELL O2 SATS WHEN SHE RETURNED TO THE BED WERE 92% ON 4L VIA NC. PT IN BED CALL LIGHT IN REACH NO CURRENT S&S OF DISTRESS NOTED. PT RAC IV WAS LEAKING AND WAS REMOVED [facility] IV WAS PLACED BY CUSTOMER SERVICE REP. DUE TO THE SMALL VEIGN THE RATE FOR THE AZITHROMYACIN WAS REDUCED TO SUPPORT FURTHER IV ACCESS. PT SEEMS TO BE TOLLERATING WELL. PLACED A MESH COVERING OVER THE IV TO PREVENT SNAGS. WILL CTM PT AND PASS ON TO NIGHT RN IN BEDSIDE REPORT.
--- NOTE | 2022-06-16 04:35 | NUR ---
SHIFT SUMMARY PATIENT ANXIOUS AT SHIFT CHANGE AND SOB W/EXERTION TO BR WITH ONE ASSIST. ON 4L O2 N/C STATING 96% ON CONTINUOUS PULSE OXIMETRY. REFUSED BIPAP PER RT T/O SHIFT. PIV REMAINS INTACT. IV SOLU-MEDROL GIVEN PER EMAR. RT IN FOR BREATHING TX. PATIENT LESS ANXIOUS LATER IN SHIFT. SLEPT ON/OFF. CALL LIGHT IN REACH. BED IN LOWEST POSITION. WILL CONTINUE TO MONITOR UNTIL DAY SHIFT NURSE ASSUMES CARE.
--- NOTE | 2022-06-16 17:08 | NUR ---
SHIFT SUMMARY- PT ALERT AND ORIENTED 1PA TO THE BATHROOM, PT CURRENTLY RECIEVEING IV ABX RUNNING AT A SLOWER RATE D/T A SMALL IV THAT FLUSHES WELL BUT SLOW. PLAN WAS FOR THE PT TO DC HOME TODAY, HOWEVER THE MD WANTED TO DO A CHEST CT TO R/O ANY OTHER REASON FOR THE PT SEVERE ACTIVITY INTOLLERANCE. PLAN, IF CT RESULT IS NORMAL, SEND THE PT HOME WITH HOME HEALTH TOMORROW. PT IS AWARE. THERE WAS AN INCIDENT TODAY WHERE THE PT ASSISTED HER TO THE BATHROOM TO STAND AND WASH HER HAIR AT THE SINK, THE PT BECAME VERY SHORT OF BREATHAND WAS TRYING TO LAY ON THE FLOOR TO REST, OT HAD ENTERED THE ROOM AT THAT TIME AND ASSISTED THE PT BACK TO BED WHERE SHE WAS ABLE TO RECOVER. PT IS CURRENTLY ROLLED TOWARD THE EOB FACING THE WINDOW SUNNING HERSELF, THE PT STATES SHE HAS NO NEEDS AT THIS TIME. WILL CTM AND PASS ON TO NIGHT RN IN BEDSIDE REPORT.
[2022-06-16] MEDS ORDERED: BUPROPION XL150 M1 PO (21:54)
[2022-06-16] MEDS ORDERED: ALBU2.5V5 INH (21:55)
[2022-06-16] MEDS ORDERED: VARENICLINE TART1 M2 PO (21:58)
[2022-06-16] MEDS ORDERED: SPIRIVA RESPIMAT4 G3 INH (21:58)
[2022-06-16] MEDS ORDERED: Prednisone10 MG PO (22:00)
--- NOTE | 2022-06-17 03:24 | NUR ---
MACHINE LACER SUMMARY VSS. ALERT AND ORIENTED. AFFECT CHEERFUL WHEN SPOKEN TO. LUNG SOUNDS DIMINISHED TO AUSCULTATION, O2 AT 2L/MIN PER NC. WITH RT PROCEDURES SCHEDULED THROUGH OUT SHIFT. HAS BEEN RESTING QUIETLY WITH OCCASIONAL INTERRUPTIONS. CALL LIGHT IN REACH. NO APPARENT S/S ACUTE DISTRESS AT THIS TIME. WILL CONTINUE TO MONITOR
[2022-06-17 05:45] LABS: BASOPHILS ABSOLUTE AUTO 0.01 K/mm3 (0.00-0.23); BASOPHILS PERCENT AUTO 0 % (0-2); EOSINOPHILS PERCENT AUTO 0 % (0-6); Hematocrit 38.4 % (33.0-51.0); Hemoglobin 12.8 g/dL (11.5-16.0); IMMATURE GRAN ABSOLUTE AUTO 0.17 K/mm3 (0.00-0.10); IMMATURE GRAN PERCENT AUTO 1 % (0-1); LYMPHOCYTES ABSOLUTE AUTO 1.07 K/mm3 (0.84-5.20); LYMPHOCYTES PERCENT AUTO 8 % (21-46); MONOCYTES ABSOLUTE AUTO 0.67 K/mm3 (0.16-1.47); MONOCYTES PERCENT AUTO 5 % (4-13); Mean Corpuscular HGB 30.2 pg (26.0-34.0); Mean Corpuscular HGB Conc 33.3 g/dL (31.5-36.5); Mean Corpuscular Volume 91 fL (80-100); Mean Platelet Volume 10.2 fL (9.1-12.4); NEUTROPHILS ABSOLUTE AUTO 11.04 K/mm3 (1.96-9.15); NEUTROPHILS PERCENT AUTO 85 % (41-73); Platelet Count 212 K/mm3 (150-400); RDW Coefficient Variation 13.4 % (11.7-14.2); RDW Standard Deviation 43.8 fL (35.1-46.3); Red Blood Cell Count 4.24 M/mm3 (3.80-5.20); White Blood Cell Count 12.96 K/mm3 (4.00-11.30)
[2022-06-17 06:13] LABS: Bilirubin, Total 0.6 mg/dL (0.1-1.0); Bun/Creatinine Ratio 47.3 (12.0-20.0); Calcium, Blood 8.5 mg/dL (8.5-10.1); Creatinine, Blood 0.55 mg/dL (0.40-1.00); Globulin, Blood 2.9 g/dL (2.2-4.0); Potassium, Blood 4.2 mmol/L (3.5-5.5); Total Protein, Blood 5.9 g/dL (6.4-8.2)
[2022-06-17] MEDS ORDERED: Prednisone10 MG PO (11:21)
[2022-06-17] MEDS ORDERED: GUAI600T33 PO (11:22)
[2022-06-17] MEDS ORDERED: AZIT500 PO (11:23)
[2022-06-17] MEDS ORDERED: CEFP200 PO (11:24)
--- NOTE | 2022-06-17 16:21 | NUR ---
DC- PT LEFT IN STABLE CONDITION IN WC OUT OF THE HOSPITAL WITH . PT LEFT WITH ALL BELONGINGS. ALL PAPERWORK SIGNED. PT LEFT ON 3 L WITH HER PORTABLE HOME O2 TANK.
== END 2022-06-17 11:53 | disposition home health service (06) | DRG 189 ==
LOC: ER 18:14 → PCU 18:15 → MEDS 06-15 13:00
PROVIDERS: Emergency Medicine; Hospitalist; Internal Medicine; ADMIT Internal Medicine
PROC: 5A09357 Assistance with Respiratory Ventilation, Less than 24 Consecutive Hours, Continuous Positive Airway Pressure (ICD-10-PCS; principal; 2022-06-09)
DX: J96.21 Acute and chronic respiratory failure with hypoxia (principal); J96.22 Acute and chronic respiratory failure with hypercapnia; Z85.3 Personal history of malignant neoplasm of breast; F17.210 Nicotine dependence, cigarettes, uncomplicated; Z99.81 Dependence on supplemental oxygen; J43.9 Emphysema, unspecified; F31.9 Bipolar disorder, unspecified; R32 Unspecified urinary incontinence; E78.5 Hyperlipidemia, unspecified; R56.9 Unspecified convulsions; G47.00 Insomnia, unspecified; E03.9 Hypothyroidism, unspecified; F41.9 Anxiety disorder, unspecified
CPT/HCPCS: 0241U; 36415; 36600; 71045; 71260; 80048; 80053; 82803; 83735; 83880; 84100; 84484; 85025; 93005; 93010; 94640; 94644; 94645; 94660; 94664; 94762; 96365; 96376; 97110; 97162; 97165; 97530; 97535; 99285-25; A9270; G0378; J0456; J0696; J1644; J1650; J2060; J2920; J2930; J3475; J7050; Q9967

== ENCOUNTER 2024-01-05 22:41 | Inpatient (IN) | payer MEDICARE, OTHER ==
[~2024-01-05] VITALS: Ht 175.3 cm; Wt 60.4 kg
[~2024-01-05 22:41] MED LIST changes: +ALBU2.5V5 INH; +AZIT500 PO; +BUPROPION XL150 M1 PO; +CEFP200 PO; +MONDOXYNE NL100 MG PO; +MONT10T PO; +Prednisone10 MG PO; +SPIRIVA RESPIMAT4 G3 INH; +TRELEGY ELLIPT1 EACH; +VARENICLINE TART1 M2 PO; +VENL150ER PO; -VENLAFAXINE HCL75 MG PO; +Ventolin/Prove6.7 GM INH
[2024-01-05] MEDS ORDERED: Albuterol 2.5 MG/3 ML VIAL INH SCH (22:50)
[2024-01-05] MEDS ORDERED: Magnesium Sulf 2 GM/Water 50ML 50 ML IV ONE (22:55)
[2024-01-05 22:57] LABS: Base Excess Venous 3.2 mmol/L; Bicarbonate Venous 25.8 mmol/L (24.0-30.0); pH Blood Venous 7.29 (7.34-7.37)
[2024-01-05 22:58] LABS: BASOPHILS ABSOLUTE AUTO 0.04 K/mm3 (0.00-0.23); BASOPHILS PERCENT AUTO 1 % (0-2); EOSINOPHILS PERCENT AUTO 2 % (0-6); Hematocrit 39.6 % (33.0-51.0); Hemoglobin 12.8 g/dL (11.5-16.0); IMMATURE GRAN ABSOLUTE AUTO 0.01 K/mm3 (0.00-0.10); IMMATURE GRAN PERCENT AUTO 0 % (0-1); LYMPHOCYTES ABSOLUTE AUTO 2.73 K/mm3 (0.84-5.20); LYMPHOCYTES PERCENT AUTO 47 % (21-46); MONOCYTES ABSOLUTE AUTO 0.72 K/mm3 (0.16-1.47); MONOCYTES PERCENT AUTO 12 % (4-13); Mean Corpuscular HGB 30.3 pg (26.0-34.0); Mean Corpuscular HGB Conc 32.3 g/dL (31.5-36.5); Mean Corpuscular Volume 94 fL (80-100); Mean Platelet Volume 11.2 fL (9.1-12.4); NEUTROPHILS ABSOLUTE AUTO 2.22 K/mm3 (1.96-9.15); NEUTROPHILS PERCENT AUTO 38 % (41-73); Platelet Count 198 K/mm3 (150-400); RDW Coefficient Variation 12.9 % (11.7-14.2); RDW Standard Deviation 44.2 fL (35.1-46.3); Red Blood Cell Count 4.22 M/mm3 (3.80-5.20); White Blood Cell Count 5.82 K/mm3 (4.00-11.30)
[2024-01-05 23:12] LABS: Alanine Aminotransfer (ALT/SGP 16 U/L (12-78); Albumin, Blood 3.3 g/dL (3.4-5.0); Albumin/Globulin Ratio 0.9 (0.8-1.8); Alk Phos 84 U/L (50-136); Anion Gap 9 mmol/L (3-11); Aspartate Aminotrans (AST/SGOT 15 U/L (12-37); Bilirubin, Total 0.3 mg/dL (0.1-1.0); Blood Urea Nitrogen 11 mg/dL (8-24); Bun/Creatinine Ratio 17.7 (12.0-20.0); CO2, Blood 29 mmol/L (21-32); Calcium, Blood 8.8 mg/dL (8.5-10.1); Chloride, Blood 109 mmol/L (98-108); Creatinine, Blood 0.62 mg/dL (0.40-1.00); Globulin, Blood 3.7 g/dL (2.2-4.0); Glomerular Filtration Rate 96 (60-); Glucose, Blood 112 mg/dL (70-99); Potassium, Blood 3.6 mmol/L (3.5-5.5); Sodium, Blood 143 mmol/L (136-145)
[2024-01-05] MEDS ORDERED: CefTRIAXone Sodium 1,000 MG in NS 100 ML IV ONE (23:40)
[2024-01-06] VITALS (8 sets, daily range): BP systolic 104–144; BP diastolic 55–74
[2024-01-06] MEDS ORDERED: Ipratropium/Albuterol SulF 2.5-0.5MG/3 ML Amp INH PRN (00:10)
[2024-01-06] MEDS ORDERED: FLU VACC TS2024-25(6MOS UP)/PF 45 MCG/0.5 ML SYRINGE IM SCH (00:10)
[2024-01-06] MEDS ORDERED: Ondansetron HCl 2 MG / ML 2ML Vial IV PRN (00:15)
[2024-01-06 00:34] LABS: Influenza A, PCR NEGATIVE (NEGATIVE); Influenza B, PCR NEGATIVE (NEGATIVE); Resp Syncytial Virus, PCR NEGATIVE (NEGATIVE); SARS-Cov-2 (COVID-19) PCR, MMC NEGATIVE (NEGATIVE)
[2024-01-06] MEDS ORDERED: Azithromycin 500 MG in NS 250 ML IV SCH (01:36)
[2024-01-06 02:51] LABS: Bicarbonate Venous 24.9 mmol/L (24.0-30.0); PCO2 Venous 47.7 mmHg (38-42); pH Blood Venous 7.35 (7.34-7.37)
[2024-01-06] MEDS ORDERED: MethylPREDNISolone Sod Succ 125 MG Vial IV SCH (06:00)
--- NOTE | 2024-01-06 06:02 | NUR ---
ARRIVAL TO U 15 PT A/O X 4. VSS. ON 4L VIA NC ON ARRIVAL AND QUICKLY BECAME SOB. RT IN ROOM AND PLACED PT ON BIPAP WITH RELIEF. PT STATES WILL BRING IN MED LIST IN THE AM. SHAWN BERRIOS APPLIED D/T PT RESP STATUS. NO URINE OF THIS NOTE. CALL LIGHT IN REACH.
[2024-01-06 06:20] LABS: Hematocrit 38.4 % (33.0-51.0); Hemoglobin 12.5 g/dL (11.5-16.0); Mean Corpuscular HGB 30.1 pg (26.0-34.0); Mean Corpuscular HGB Conc 32.6 g/dL (31.5-36.5); Mean Corpuscular Volume 93 fL (80-100); Mean Platelet Volume 10.8 fL (9.1-12.4); Platelet Count 190 K/mm3 (150-400); RDW Coefficient Variation 12.8 % (11.7-14.2); RDW Standard Deviation 43.4 fL (35.1-46.3); Red Blood Cell Count 4.15 M/mm3 (3.80-5.20)
[2024-01-06 06:48] LABS: Albumin, Blood 3.2 g/dL (3.4-5.0); Albumin/Globulin Ratio 0.9 (0.8-1.8); Bilirubin, Total 0.3 mg/dL (0.1-1.0); Bun/Creatinine Ratio 24.3 (12.0-20.0); Calcium, Blood 8.9 mg/dL (8.5-10.1); Creatinine, Blood 0.54 mg/dL (0.40-1.00); Globulin, Blood 3.5 g/dL (2.2-4.0); Potassium, Blood 3.9 mmol/L (3.5-5.5); Total Protein, Blood 6.7 g/dL (6.4-8.2)
[2024-01-06 06:56] LABS: BASOPHILS PERCENT MAN 0 % (0-2); EOSINOPHILS PERCENT MAN 0 % (0-6); LYMPHOCYTES ABSOLUTE MAN 0.51 K/mm3 (0.84-5.20); LYMPHOCYTES PERCENT MAN 12 % (21-46); MONOCYTES ABSOLUTE MAN 0.04 K/mm3 (0.16-1.47); MONOCYTES PERCENT MAN 1 % (4-13); NEUTROPHILS ABSOLUTE MAN 3.74 K/mm3 (1.96-9.15); SEG NEUTROPHILS PERCENT MAN 87 % (41-73); TOTAL CELLS COUNTED 100
[2024-01-06] MEDS ORDERED: Enoxaparin 40 MG/0.4 ML SYR SC SCH (09:00)
[2024-01-06] MEDS ORDERED: Ipratropium/Albuterol SulF 2.5-0.5MG/3 ML Amp INH SCH (09:40)
[2024-01-06] MEDS ORDERED: Albuterol 2.5 MG/3 ML VIAL INH PRN (09:40)
[2024-01-06] MEDS ORDERED: Furosemide 10 MG/ML 4ML Vial IV ONE (09:45)
[2024-01-06] MEDS ORDERED: CefTRIAXone Sodium 1,000 MG in NS 100 ML IV SCH (12:00)
--- NOTE | 2024-01-06 15:20 | NUR ---
THIS RN AT BEDSIDE TO PERFORM A BIPAP TRIAL ON PT. BIPAP REMOVED AND PT WAS PLACED ON 3L NC. PT SAT IN BED FOR 5 MINUTES WITH NO CHANGE TO RESPIRATORY STATUS. PT OFFERED FOOD AND ACCEPTED. PT WAS ABLE TO EAT 25% OF HER FOOD BEFORE SHE WAS FULL. PTS RESPIRATIONS ARE AT 18BPM. THIS RN ASKED PT IF SHE FEELS SOB AT ALL AND PT STATED THAT SHE FEELS LIKE "HER LUNGS ARE GETTING TIGHTER". RT AT BEDSIDE TO PERFORM BREATHING TX.
--- NOTE | 2024-01-06 16:08 | NUR ---
PT ASSISTED TO BEDSIDE TO COMMODE ON BIPAP AND BECAME TECHYPENIC AFTER TRANSFERING TO A RECLINER CHAIR. PT REPORTED SOB AND FEELING LIKE SHE NEEDED MORE AIR. THIS RN COACHED PT WITH DEEP BREATHING. PT THEN REPORTED THAT SHE WAS BREATHING BETTER. BIOX 93% ON BIPAP WITH 3L BLEED IN
--- NOTE | 2024-01-06 19:22 | NUR ---
SHIFT SUMMARY: NEURO: PT A&OX4. FOLLOWS COMMANDS. CALLS APPROPRIATELY AND LETS NEEDS KNOWN TO STAFF. CARDIAC: NSR THROUGHT SHIFT. DENIED ANY CP OR TIGHTNESS THROUGHOUT SHIFT. RESP: PT WAS ON BIPAP MOST OF THE DAY AND WAS TAKEN OFF AT APPROX [address] BENNETT SAW PT AND WOULD LIKE TO SEE IF SHE COULD TOLERATE COMING OFF OF BIPAP. SEE PRIOR NOTES FOR BIPAP TRIAL. PT SITTING UP IN RECLINER WITH 3L NC. DENIES ANY SOB AT THIS TIME. PT HAS HAD WHEEZING THROUGHOUT THE DAY. PT HAS RECIEVED BREATHING TX THROUGHOUT THE DAY. PT REPORTS THAT SHE USES A FLUTTER VALVE AT HOME. PT PROVIDED WITH ONE. GI/: PT CONTINENT AND TRANSFERING TO THE BSC WHILE ON BIPAP. ADEQUATE AMOUNT OF CLEAR YELLOW URINE. PT BECOMES SOB WITH ANY EXCERTION. NO BM TODAY. IV'S: 20G LFA. PATENT. NO OTHER SIGNIFICANT EVENTS HAVE HAPPENED DURING THIS SHIFT. REPORT TO EWELINA SHAVER TO ASSUME CARE OF PT.
--- NOTE | 2024-01-06 21:15 | NUR ---
ASSUMPTION OF CARE ASSUMED CARE OF PATIENT AT 1900, BEDSIDE SHIFT REPORT RECEIVED FROM ELHAM RN. PT SITTING UP IN RECLINER, ALERT AND ORIENTED X4. PT ANSWERS QUESTIONS APPROPRIATELY, FOLLOWS DIRECTION WHEN PROMPTED AND IS ABLE TO MAKE HER NEEDS KNOWN. PT MOVES EXTREMITIES EQUALLY BILATERALLY. HR 90-110'S AFIB, MAP >65. PT ON 3L O2 VIA NC, PT BEGAN FEELING SOB WITH INCREASED WOB, RT TO BEDSIDE, BREATHING TREATMENT GIVEN, PT PLACED ON BIPAP FOR SHORT PERIOD OF TIME. PT RECOVERED OXYGEN SATURATION >92%, PT ASKED TO BE TAKEN OFF BIPAP, PLACED BACK ON 3LPM VIA NC, OXYGEN SATURATION CURRENTLY 93%. ABDOMEN SOFT, BOWEL TONES ACTIVE IN ALL FOUR QUADRANTS. PT FEELING SLIGHTLY NAUSEOUS, DENIES MEDICATION AT THIS TIME. PIV IN PLACE TO LAC. CALL LIGHT WITHIN REACH, CARE CONTINUES.
--- NOTE | 2024-01-06 22:52 | NUR ---
PT UPDATE PT UP TO BEDSIDE COMMODE FROM RECLINER TO VOID. PT PLACED ON BIPAP FOR TRANSFER. WHILE PT ON BEDSIDE COMMODE WITH BIPAP IN PLACE, PT BECAME ANXIOUS, ATTEMPTING TO PULL THE MASK OFF, GRABBING AT THIS RNS ARMS AND STATING THAT SHE FEELS LIKE SHE IS CHOKING ON THE BIPAP MASK. BIPAP REMOVED, NC REPLACED AT 3L, PT CONTINUING TO FEEL SOB WITH INCREASED WORK OF BREATHING. NC INCEASED TO 4LPM FOR PATIENT COMFORT. ONCE PT RECOVERED PT TRANSFERED TO BED FROM COMMODE WITH SBA. PT WITH INCREASED SOB AND WOB WITH ANY EXERTION. PT NOW RESTING IN BED, NC IN PLACE AT 4LPM, PT DENIES SHORTNESS OF BREATH WHILE RESTING IN BED. OXYGEN SATURATION >94%. CARE CONTINUES.
[2024-01-07 04:12] VITALS: BP 110/59
[2024-01-07 04:15] VITALS: BP 110/59
--- NOTE | 2024-01-07 05:55 | NUR ---
SHIFT SUMMARY NO ACUTE CHANGES THIS SHIFT. PT CONTINUES TO REST IN BED, SLEEPNG BUT AROUSABLE. PT ORIENTED X4, ANSWERS QUESTIONS APPROPRIATELY, FOLLOWS DIRECTION WHEN PROMPTED AND IS BRITTANY TO MAKE HER NEEDS KNOWN. PT MOVES EXTREMITIES EQUALLY BILATERALLY. HR 80-110'S AFIB, MAP >65. PT DENIES CP/PRESSURE. PT ALTERNATING BETWEEN NC AND BIPAP THROUGHOUT THIS SHIFT. PT CURRENTLY ON BIPAP, OXYGEN SATURATION >90%. PT WITH INCREASED SOB/WOB WITH EXERTION. PT ANXIOUS AT TIMES WITH BIPAP MASK. ABDOMEN SOFT, BOWEL TONES ACTIVE IN ALL FOUR QUADRANTS. PT UP TO BEDSIDE COMMODE TO VOID. PIV IN PLACE TO LAC SL. BED IN LOWEST POSITON, CALL LIGHT WITHIN REACH, CARE CONTINUES.
[2024-01-07 08:44] VITALS: BP 115/58
[2024-01-07] MEDS ORDERED: Acetaminophen 325 MG TABLET PO PRN (10:35)
[2024-01-07] MEDS ORDERED: LORazepam 1 MG Tab PO PRN (11:25)
[2024-01-07 13:33] VITALS: BP 115/60
--- NOTE | 2024-01-07 14:00 | NUR ---
PT WAS ABLE TO TRANSFER TO THE BSC AND BACK TO THE BED ON NC. PT DID EXPERIENCE SOB WAS ABLE TO RECOVER WITHOUT USE OF THE BIPAP THIS MORNING AROUND 0900. AT APPROX 1115, EXPERIMENTAL PREFLIGHT MECHANIC WAS ASSISTING PT WITH A BED BATH WHEN PT BECAME VERY SOB WHILE ON NC. RN AT BEDSIDE TO ASSIST PT WITH PUTTING BIPAP BACK ON. PT REFUSING BIPAP AT THIS TIME. WHEN ASKED WHY THE PT STATED THAT SHE WAS SCARED AND THAT IT MAKES HER CLAUSTROPHOBIC. PT ASKED IF SHE WOULD LIKE SOMETHING FOR ANXIETY AND IS HELPS WITH THE CLAUSTROPHOBIA WHILE ON THE BIPAP. PT SAID NO. PT EDUCATED ABOUT THE BENEFIT OF ANXIETY MEDS AND PT WAS AGREEABLE. PT MEDICATED PER PEROVIDER ORDERS. THIS RN AT BEDSIDE TO WORK PT THROUGH PANIC ATTACK. PT TRYING TO PULL OFF MASK AND GRABING THIS RNS WRIST STATING THAT SHE IS HAVING A PANIC ATTACK. THIS RN ASSISTED PT WITH DEEP BREATHING EXERCISES AND PROVIDED WITH HER FAN. PT WAS ABLE TO CALM DOWN AND TOLERATE BIPAP. PT IS NOW SLEEPING. DROWSY BUT WAKES EASILY. O2 SATS WERE TURNED UP FROM 3L TO 4L BY RT. VITAL SIGNS STABLE. O2 SAT >92%. CALL LIGHT IN REACH.
[2024-01-07 16:30] VITALS: BP 110/66
[2024-01-07 20:00] VITALS: BP 131/68
[2024-01-07] MEDS ORDERED: MethylPREDNISolone Sod Succ 125 MG Vial IV SCH (21:00)
[2024-01-08] VITALS (7 sets, daily range): BP systolic 108–122; BP diastolic 60–70
[2024-01-08 06:07] LABS: BASOPHILS ABSOLUTE AUTO 0.02 K/mm3 (0.00-0.23); BASOPHILS PERCENT AUTO 0 % (0-2); EOSINOPHILS PERCENT AUTO 0 % (0-6); Hematocrit 35.6 % (33.0-51.0); Hemoglobin 11.8 g/dL (11.5-16.0); IMMATURE GRAN ABSOLUTE AUTO 0.11 K/mm3 (0.00-0.10); IMMATURE GRAN PERCENT AUTO 1 % (0-1); LYMPHOCYTES ABSOLUTE AUTO 1.33 K/mm3 (0.84-5.20); LYMPHOCYTES PERCENT AUTO 7 % (21-46); MONOCYTES ABSOLUTE AUTO 1.05 K/mm3 (0.16-1.47); MONOCYTES PERCENT AUTO 5 % (4-13); Mean Corpuscular HGB 30.2 pg (26.0-34.0); Mean Corpuscular HGB Conc 33.1 g/dL (31.5-36.5); Mean Corpuscular Volume 91 fL (80-100); Mean Platelet Volume 10.9 fL (9.1-12.4); NEUTROPHILS ABSOLUTE AUTO 17.01 K/mm3 (1.96-9.15); NEUTROPHILS PERCENT AUTO 87 % (41-73); Platelet Count 221 K/mm3 (150-400); RDW Coefficient Variation 13.2 % (11.7-14.2); RDW Standard Deviation 44.3 fL (35.1-46.3); Red Blood Cell Count 3.91 M/mm3 (3.80-5.20); White Blood Cell Count 19.52 K/mm3 (4.00-11.30)
--- NOTE | 2024-01-08 06:27 | NUR ---
SHIFT SUMMARY PT A&O X4, VERY ANXIOUS AT TIMES. VSS; SBP 120 - 130'S, HRR SINUS TACH IN 100'S - 1 TEENS, AFEBRILE, SPO2 93 - 98% ON 3 LPM NC OR BIPAP WITH 4 LPM BLEED IN. PT CONTINUES TO HAVE EPISODES OF PANIC AND "NOT BEING ABLE TO BREATH". PT NEEDING COACHING TO DEEP BREATH AND CONTROL RATE OF BREATHING. PT NEEDING BIPAP WITH ANY ACTIVITY AND WHEN GETTING UP TO BSC. PT BECOMES DYSPNEIC AND WOB INCREASED, DESATS INTO LOW 80'S. PT TAKES A LITTLE WHILE TO RECOVER AND NEEDS COACHING THROUGH TO RECOVER. WHEN PT ON NASAL CANNULA - ABLE TO DRINK AND EAT, DOES WELL WITH ALL OF THIS. ATIVAN PER EMAR FOR ANXIETY AND FOR BIPAP TOLERATION, PT WILL AT TIMES BECOME SO ANXIOUS THAT SHE BEGINS TRYING TO REMOVE BIPAP AND NOT WANTING TO KEEP IT ON. PT USING BSC 1 PERSON ASSIST, 300 MLS UOP THIS SHIFT. ABX AND IV STEROIDS PER EMAR, BREATHING TREATMENTS PER RT AND MAR. NO BM THIS SHIFT. PT FINALLY ABLE TO SETTLE IN AND REST FOR LATTER PART OF SHIFT. ABLE TO MAKE TO NEEDS KNOWN, CALL LIGHT IN REACH. WILL UPDATE ONCOMING RN.
[2024-01-08 06:30] LABS: Albumin, Blood 3.2 g/dL (3.4-5.0); Bilirubin, Total 0.4 mg/dL (0.1-1.0); Bun/Creatinine Ratio 62.1 (12.0-20.0); Creatinine, Blood 0.58 mg/dL (0.40-1.00); Globulin, Blood 3.3 g/dL (2.2-4.0); Potassium, Blood 3.3 mmol/L (3.5-5.5); Total Protein, Blood 6.5 g/dL (6.4-8.2)
[2024-01-08] MEDS ORDERED: Potassium Chloride 20 MEQ TabCR PO SCH (08:00)
[2024-01-08] MEDS ORDERED: Guaifenesin/Dextromethorphan Syrup 5 ML UDC PO PRN (11:00)
[2024-01-08 12:32] LABS: PCO2 Arterial 39.9 mmHg (35-45); PO2 Arterial 90.3 mmHg (80-100); pH Blood Arterial 7.46 (7.35-7.45)
--- NOTE | 2024-01-08 13:12 | NUR ---
UPDATE PT ON BIPAP MOST OF THE DAY SO FAR. PT WAS ABLE TOLERATE NC FOR ABOU 2 HOURS THEN DECIDED THAT SHE WANTED TO TAKE A NAP. PT DID MINIMAL ACTIVITY LAYING DOWN AND WAS MOSTLY ASSISTED BY STAFF. PT BECAME SOB AND REQUIRED BIPAP. PT STATING THAT SHE FEELS LIKE SHE IS CHOKING ON THE FORCE OF THE AIR AND FEELS LIKE SHE IS HAVING A HARDER TIME BREATHING WITH IT ON PT MAINTAING O2 SATS ABOVE 92% BUT APPEARS TO BE WORKING HARDER TO BREATHE. PT STATES THAT SHE IS FEELING ANXIETY AND OFFERED MEDS. PT AGREEABLE. THIS RN CALLED RT. RT AT BEDSIDE TO TRY HIFLOW NC. PT REPORTS THAT SHE FEELS LIKE SHE CAN BREATHE BETTER WITH THE HIGH FLOW ON. APPEARS TO BE RESTING MORE COMFORTABLY IN BED AT THIS TIME. HI FLOW SETTINGS ARE AT 35L FIO2 30%.
[2024-01-08] MEDS ORDERED: Ipratropium/Albuterol SulF 2.5-0.5MG/3 ML Amp INH SCH (16:30)
[2024-01-08] MEDS ORDERED: MethylPREDNISolone Sod Succ 40 MG VIAL IV SCH (18:00)
--- NOTE | 2024-01-08 18:53 | NUR ---
SHIFT SUMMARY: NEURO: A&OX4. CALLS APPROPRIATELY AND MAKES NEEDS KNOWN TO STAFF. PT WAS MEDICATED LATE THIS MORNING FOR ANXIETY. CARDIAC: DENIED ANY CP, TIGHTNESS OR PRESSURE TODAY. PT REPORTS TIGHTNESS BUT ONLY IN HER LUNGS. RESP: SEE PREVIOUS NOTE. PT HAS BEEN ON AIRVO SINCE PREVIOUS NOTE. SETTINGS STILL AT 30L 35%. DENIES ANY SOB. PT WAS TAKEN OFF AIRVO TO EAT DINNER AND BECAME TOO SOB AND WAS PUT BACK ON AIRVO. PT CONTINUED TO BE SOB. LUNG SOUNDS WERE WHEEZIE THROUGHOUT AND TIGHT SOUNDING ON AUSCULTATION. RT CALLED FOR BREATHING TX. PT CONTINUED TO USE FLUTTER VALVE AND WAS GIVEN AND EDUCATED ON HOW TO USE AN INCENTIVE SPIROMETER. GI/: PT DID NOT HAVE MUCH URINARY OUTPUT TODAY. SHE DID HAVE BM. SKIN:WNL NO OTHER SIGNIFICANT EVENTS HAPPENED DURING THIS SHIFT. WILL CONTINUE TO CARE FOR PT TILL END OF SHIFT.
[2024-01-08] MEDS ORDERED: LORazepam 1 MG Tab PO ONE (23:15)
[2024-01-09] VITALS: BP 132/75
[2024-01-09 04:30] VITALS: BP 119/60
--- NOTE | 2024-01-09 06:51 | NUR ---
SHIFT SUMMARY PT REMAINS A&O X4, VSS; SBP 120'S, HRR SINUS IN 80 - 90'S, AFEBRILE, SPO2 93 - 97% ON AIRVO 4 LPM AND 30 - 35% FIO2. PT TOLERATING AIRVO WELL, ALTHOUGH CONTINUES TO HAVE EPISODES OF ANXIETY RELATED TO "NOT BEING ABLE TO BREATH OR CATCH BREATH". PT CONTINUES TO DESAT AND HAVE EPISODES WITH MINIMAL ACTIVITY. PT STILL NEEDING TO BE COACHED THROUGH TO RECOVER DURING EPISODES. PO ATIVAN GIVEN X2 THIS SHIFT D/T PT HAVING SEVERE PANIC ATTACK/ANXIETY AT START OF SHIFT. PT ABLE TO FINALLY CALM, RECOVER AND RESTED WELL THE REST OF THE SHIFT. PUREWICK IN PLACE D/T INABILITY TO TOLERATE ACTIVITY AT THE TIME. IV STEROIDS AND ABX PER EMAR. PT CONTINUES WITH NON-PRODUCTIVE COUGH, COUGH SYRUP PER EMAR WITH MODERATE RELIEF. ABLE TO MAKE NEEDS KNOWN, CALL LIGHT IN REACH. WILL UPDATE ONCOMING RN.
[2024-01-09 07:56] VITALS: BP 135/65
[2024-01-09 11:34] VITALS: BP 122/67
[2024-01-09 15:20] VITALS: BP 136/73
--- NOTE | 2024-01-09 18:01 | NUR ---
SHIFT SUMMARY: PT HAS BEEN A&Ox4, ANSWERS QUESTIONS APPROPRIATELY. PT QUITE ANXIOUS THIS AM, POSITIONAL IN BED, SITTING UPRIGHT, C/O "CAN'T GET ENOUGH BREATH". PT MEDICATED PER EMAR, RESPONDED WELL, BUT ALSO RESPONDED WELL TO ENCOURAGEMENT/ COACHING TO REMAIN CALM AND FOCUS OF BREATHING. WHEEZING HEARD T/OUT TO AUSCULTATION. PT USING FLUTTER VALVE T/OUT DAY. COUGH PRESENT, NONPRODUCTIVE AT THIS TIME. NO CHANGE TO AIRVO SETTING T/OUT DAY, CONTINUES AT 35L AND 28% FIO2, PT DECLINES BIPAP. SR ON MONITOR, RATE 80s-90s AT REST. ONCE MORE CALM, PT ABLE TO TRANSFER TO/FROM [facility] [place] W/SBA AND TOLERATED WELL. BEDBATH COMPLETED TODAY. PT RESTING IN BED WITH LIGHTS LOW, CALL LIGHT IN REACH.
[2024-01-09 20:00] VITALS: BP 159/92
[2024-01-09] MEDS ORDERED: LORazepam 2 MG/ML 1ML Injection IV PRN (20:20)
[2024-01-10] VITALS (8 sets, daily range): BP systolic 114–142; BP diastolic 59–79
[2024-01-10 04:17] LABS: BASOPHILS ABSOLUTE AUTO 0.03 K/mm3 (0.00-0.23); BASOPHILS PERCENT AUTO 0 % (0-2); EOSINOPHILS PERCENT AUTO 0 % (0-6); Hematocrit 36.5 % (33.0-51.0); Hemoglobin 11.9 g/dL (11.5-16.0); IMMATURE GRAN ABSOLUTE AUTO 0.29 K/mm3 (0.00-0.10); IMMATURE GRAN PERCENT AUTO 2 % (0-1); LYMPHOCYTES ABSOLUTE AUTO 1.27 K/mm3 (0.84-5.20); LYMPHOCYTES PERCENT AUTO 11 % (21-46); MONOCYTES ABSOLUTE AUTO 0.68 K/mm3 (0.16-1.47); MONOCYTES PERCENT AUTO 6 % (4-13); Mean Corpuscular HGB 30.1 pg (26.0-34.0); Mean Corpuscular HGB Conc 32.6 g/dL (31.5-36.5); Mean Corpuscular Volume 92 fL (80-100); Mean Platelet Volume 11.1 fL (9.1-12.4); NEUTROPHILS ABSOLUTE AUTO 9.61 K/mm3 (1.96-9.15); NEUTROPHILS PERCENT AUTO 81 % (41-73); Platelet Count 223 K/mm3 (150-400); RDW Coefficient Variation 13.2 % (11.7-14.2); RDW Standard Deviation 44.9 fL (35.1-46.3); Red Blood Cell Count 3.96 M/mm3 (3.80-5.20); White Blood Cell Count 11.88 K/mm3 (4.00-11.30)
[2024-01-10 04:36] LABS: Calcium, Blood 8.5 mg/dL (8.5-10.1); Creatinine, Blood 0.52 mg/dL (0.40-1.00); Potassium, Blood 4.4 mmol/L (3.5-5.5)
--- NOTE | 2024-01-10 06:44 | NUR ---
SHIFT SUMMARY PT REMAINS A&O X4. VSS; SBP 120'S, HRR SINUS IN 80 - 90'S AT REST, SINUS TACH IN 100'S WITH ANXIETY ATTACKS AND DIFFICULTIES BREATHING. AFEBRILE, SPO2 91 - 97% ON AIRVO, SAME SETTINGS PREVIOUS. BREATHING TREATMENTS PER EMAR WITH RT. PT LS REMAIN WITH WHEEZES SCATTERED T/O ALL LOBES. PT WITH MAJOR ANXIETY ATTACK AT START OF SHIFT, PT NEEDED TO BE COACHED AND GUIDED THROUGH BREATHING. HOSPITALIST NOTIFIED OF PT ANXIETY AND INCREASE IN AMOUNT, NOT ABLE TO SAFELY TAKE PO MEDICATION FOR ANXIETY. IV ATIVAN ORDERED PER EMAR. ADMINISTERED WITH MODERATE RELIEF AFTER A WHILE. PT CONTINUES TO STATE "CANNOT BREATH OR GET ENOUGH BREATH", DESPITE AIRVO SETTINGS AND SPO2 REMAININING 88 - 93% DURING ATTACKS. AFTER PT SETTLED, SHE WAS ABLE TO SLEEP WELL UNTIL AROUND 0400 WHEN AWAKENED WITH MODERATE ANXIETY ATTACK S/T "NOT BEING ABLE TO BREATH" AND INCREASED WOB. IV ATIVAN GIVEN AGAIN WITH ADEQUATE RELIEF AND PT ABLE TO GO BACK TO SLEEP. T/O SHIFT RR 20 - 26. IV STEROIDS AND ABX PER EMAR. PT ABLE TO MAKE NEEDS KNOWN. PT CONTINUES TO VERBALIZE THAT SHE IS "EXHAUSTED AND TIRED OF ALL THIS, TIRED OF BEING SICK AND NOT GETTING BETTER", PT WANTING TO GO HOME BUT DOES WANT TO GET "BETTER. WILL UPDATE ONCOMING RN.
[2024-01-10] MEDS ORDERED: HyDROXyzine HCl 10 MG Tab PO SCH (09:00)
[2024-01-10] MEDS ORDERED: IPRAT-ALBUT 0.5-3 ML INH (10:12)
[2024-01-10] MEDS ORDERED: VENL150ER PO (10:49)
[2024-01-10] MEDS ORDERED: Flonase 0.05% N16 GM (10:49)
[2024-01-10] MEDS ORDERED: FLUT1DIS2 INH (10:50)
[2024-01-10] MEDS ORDERED: MONT10T PO (10:50)
--- NOTE | 2024-01-10 13:15 | NUR ---
NURSE NOTE PT MEDICATED PER EMAR, WASTE WITNESSED BY ZACHARY SHAVER AND RUFINA SHAVER. SPOUSE IN ROOM, PT SITTING UP AT BEDSIDE. CALL LIGHT IN REACH.
--- NOTE | 2024-01-10 13:49 | NUR ---
NURSE NOTE PATIENT IS REQUESTING TO GO HOME. CALLED DR. LOPEZ TO UPDATE, NO ORDERS FOR DISCHARGE AT THIS TIME, PATIENT IS NOT MEDICALLY READY FOR DISCHARGE. WENT TO DISCUSS THIS WITH PATIENT AND SPOUSE AT BEDSIDE. PT STATES SHE STILL WANTS TO GO HOME. PATIENT SAYS SHE IS HUNGRY. I OFFERED TO GET HER SNACKS FROM THE PANTRY SHE STATED SHE DOES NOT LIKE OUR FOOD. THEN SHE DEMANDED HER SPOUSE GO GET HER "GRISEL SAMSON, RIGHT NOW!" PT DID NOT EAT HER LUNCH TRAY THIS AFTERNOON. PT CURRENTLY SITTING UP AT BEDSIDE, ON 4 LITERS NC, SPO2 97%. CALL LIGHT IN REACH, WILL CONTINUE TO MONITOR.
[2024-01-10] MEDS ORDERED: Mometasone/Formoterol MDI 100/5 mcg 13 GM INH SCH (15:40)
--- NOTE | 2024-01-10 17:55 | NUR ---
SHIFT SUMMARY VSS, A+P X4, PT CONTINUES TO BE ANXIOUS THROUGHTOUT SHIFT MEDICATED PER EMAR FOR ANXIETY. PT HAS BEEN TITRATED BACK TO HER HOME BASELINE OF 4 LITERS NC. PT IS ABLE TO AMBULATE TO THE BATHOM W/ ASSIT OF ONE STAFF MEMEBER TO ASSIST W/ LINE MANAGMENT. PT IS ABLE TO MAKE NEEDS KNOWN, CURRENTLY SITTING UP IN CHAIR FOR MEAL. NICOTIN PATCH PLACED PER PATIENT'S REQUEST. WILL CONTINUE TO MONITIR. CALL LIGHT IN REACH.
[2024-01-10] MEDS ORDERED: Nicotine 7 MG PATCH TOP SCH (18:00)
[2024-01-10] MEDS ORDERED: Lactobacil 2-S.Thermo-Bifido 1 1 Cap PO SCH (21:00)
--- NOTE | 2024-01-10 21:00 | NUR ---
ASSUMPTION OF CARE AFTER RECEIVING REPORT FROM MORIS RN, THIS RN ASSUMED CARE AT APPROX 1915. PATIENT ALERT AND ORIENTED X4. REQUESTING TO LEAVE TO GO SMOKE - EDUCATION PROVIDED REGARDING FACILITYs NO SMOKING POLICY. PATIENT STATES UNDERSTANDING, NICOTINE PATCH IN PLACE. DOES EXPERIENCE EPISODES OF ANXIETY - ESPECIALLY IN REGARDS TO SHORTNESS OF BREATH, WORK OF BREATHING. AFTER USING THE RESTROOM, PATIENT DID EXPERIENCE AN EPISODE OF INCREASED PANIC DUE TO SHORTNESS OF BREATH. OXYGEN SATs REMAIN >88%. DID NOT REQUIRE ADDITIONAL OXYGEN TO RECOVER. MANAGED ANXIETY PER EMAR WITH IV ATIVAN AND THERAPUETIC DISCUSSION. TELEMETRY SHOWING SINUS 80s-90s AT REST. WITH ANXIETY OR ACTIVITY, RATE INCREASES TO 100s-110s. BP STABLE, SBP 110s. DENIES CHEST PAIN, PRESSURE. ON BASELINE 3L VIA NC, SATs >90%. IS A ONE PERSON ASSIST WITH MOBILITY. CALL LIGHT IN REACH
[2024-01-10] MEDS ORDERED: LORazepam 2 MG/ML 1ML Injection IV ONE (21:50)
--- NOTE | 2024-01-10 22:28 | NUR ---
CHEST PAIN AROUND 2140, PATIENT SITTING UP ON SIDE OF BED REPORTING 10/10 CHEST PAIN. DESCRIBES PAIN NONRADIATING, A "DEEP ACHE" LOCATED IN THE CENTER OF HER CHEST. PATIENT IS EXPERIENCING INCREASED PANIC, ANXIETY WITH SYMPTOMS. MD CONTACTED - RECEIVED ORDER FOR ONE TIME 1MG IV ATIVAN TO OBTAIN AN EKG. ORDER FOR TROPONIN NOW AND TWO HOURS LATER. PATIENT DID REPORT IMPROVEMENT IN SYMPTOMS FOLLOWING IV ATIVAN ADMINISTRATION. VSS. SBP 140s. EKG OBTAINED SHOWING SINUS 80s. AWAITING TROPONIN RESULT. MD CONTACTED WITH UPDATE - MD TO UNIT TO VIEW EKG. CALL LIGHT IN REACH. WILL CONTINUE TO MONITOR.
[2024-01-11 03:53] VITALS: BP 133/71
[2024-01-11 04:28] LABS: BASOPHILS ABSOLUTE AUTO 0.07 K/mm3 (0.00-0.23); BASOPHILS PERCENT AUTO 1 % (0-2); EOSINOPHILS PERCENT AUTO 0 % (0-6); Hematocrit 41.2 % (33.0-51.0); Hemoglobin 13.3 g/dL (11.5-16.0); IMMATURE GRAN ABSOLUTE AUTO 0.55 K/mm3 (0.00-0.10); IMMATURE GRAN PERCENT AUTO 5 % (0-1); LYMPHOCYTES PERCENT AUTO 10 % (21-46); MONOCYTES PERCENT AUTO 8 % (4-13); Mean Corpuscular HGB 29.8 pg (26.0-34.0); Mean Corpuscular HGB Conc 32.3 g/dL (31.5-36.5); Mean Corpuscular Volume 92 fL (80-100); Mean Platelet Volume 10.9 fL (9.1-12.4); NEUTROPHILS ABSOLUTE AUTO 9.33 K/mm3 (1.96-9.15); NEUTROPHILS PERCENT AUTO 77 % (41-73); NRBC ABSOLUTE 0.02 K/mm3 (0.00-0.02); NRBC Auto 0.2 /100 WBC (0.0-0.2); Platelet Count 246 K/mm3 (150-400); RDW Coefficient Variation 13.2 % (11.7-14.2); RDW Standard Deviation 44.5 fL (35.1-46.3); Red Blood Cell Count 4.46 M/mm3 (3.80-5.20); White Blood Cell Count 12.05 K/mm3 (4.00-11.30)
[2024-01-11 04:59] LABS: Bun/Creatinine Ratio 46.8 (12.0-20.0); Calcium, Blood 9.1 mg/dL (8.5-10.1); Creatinine, Blood 0.56 mg/dL (0.40-1.00); Potassium, Blood 4.2 mmol/L (3.5-5.5)
--- NOTE | 2024-01-11 05:22 | NUR ---
SHIFT SUMMARY SEE PREVIOUS NOTES. PATIENT IS CURRENTLY SLEEPING, EASILY AROUSABLE WITH VERBAL STIMULI. MANAGING EPISODES OF ANXIETY WITH THERAPUETIC DISCUSSION, DISTRACTION - PATIENT HAS NOT RECEIVED ANY ADDITIONAL DOSES OF IV ATIVAN SINCE PREVIOUS DOCUMENTATION. TELEMETRY SHOWING SINUS 80s. BP STABLE, SBP 120s-140s. NO FURTHER EPISODES OF CHEST PAIN OR PRESSURE. ON 3-4L VIA NC T/O NIGHT, SATs >88%. RR 20-26. AMBULATING WITH ONE PERSON ASSIST. VOIDING. NO BM THIS SHIFT. REPOSITIONING HERSELF INDEPENDENTLY IN BED. CALL LIGHT IN REACH. WILL CONTINUE TO MONITOR AND REPORT TO ONCOMING RN.
[2024-01-11 08:09] VITALS: BP 136/74
[2024-01-11] MEDS ORDERED: PredniSONE 20 MG Tab PO SCH (09:00)
[2024-01-11] MEDS ORDERED: Montelukast Sodium 10 MG Tab PO SCH (09:00)
[2024-01-11] MEDS ORDERED: Venlafaxine HCl 75 MG CapCR PO SCH (09:00)
[2024-01-11 11:40] VITALS: BP 144/749
[2024-01-11] MEDS ORDERED: LORazepam 0.5 MG Tab PO PRN (14:05)
[2024-01-11] MEDS ORDERED: Ondansetron 4 MG SoluTab MM PRN (14:05)
[2024-01-11 14:17] VITALS: BP 131/67
--- NOTE | 2024-01-11 14:33 | NUR ---
REPORT RECEIVED FROM BASEBALL INSPECTOR AND REPAIRER. PT TO UNIT AT ABOUT 1410. VSS, SP02 95% ON 2L NC. PT IS SOB ON EXERTION, HELPED TO BED AND GIVEN CALL LIGHT. ORIENTED TO ROOM
--- NOTE | 2024-01-11 17:54 | NUR ---
SUMMARY: NO CHANGE SINCE TRANSFER. PT IS A/O, VSS. USING CALL LIGHT TO MAKE NEEDS KNOWN. NO ACUTE SAFETY CONCERNS.
[2024-01-11 19:16] VITALS: BP 121/62
[2024-01-12 03:51] VITALS: BP 114/65
--- NOTE | 2024-01-12 04:27 | NUR ---
SHIFT SUMMARY PT SLEPT FOR MOST OF SHIFT. PT DENIES ANY PAIN DURING THE NIGHT. PT TOLERATING PO INTAKE. PT REMAINS ON 4L NC, BUMPED UP FROM 3L TO 4L PER PT REQUEST. O2 SATS REMAIN ABOVE 92% WHILE ON THE 4L. PT STATES THAT SHE WEARS 4L VIA NC AT HOME. PT 1P SBA TO THE BATHROOM. VSS. NO OTHER CONCERNS AT THIS TIME CALL LIGHT WITHIN REACH.
[2024-01-12 05:01] LABS: BASOPHILS ABSOLUTE AUTO 0.03 K/mm3 (0.00-0.23); BASOPHILS PERCENT AUTO 0 % (0-2); EOSINOPHILS ABSOLUTE AUTO 0.01 K/mm3 (0.00-0.68); EOSINOPHILS PERCENT AUTO 0 % (0-6); Hematocrit 36.2 % (33.0-51.0); Hemoglobin 12.2 g/dL (11.5-16.0); IMMATURE GRAN ABSOLUTE AUTO 0.34 K/mm3 (0.00-0.10); IMMATURE GRAN PERCENT AUTO 2 % (0-1); LYMPHOCYTES ABSOLUTE AUTO 2.12 K/mm3 (0.84-5.20); LYMPHOCYTES PERCENT AUTO 14 % (21-46); MONOCYTES ABSOLUTE AUTO 1.92 K/mm3 (0.16-1.47); MONOCYTES PERCENT AUTO 13 % (4-13); Mean Corpuscular HGB 30.4 pg (26.0-34.0); Mean Corpuscular HGB Conc 33.7 g/dL (31.5-36.5); Mean Corpuscular Volume 90 fL (80-100); Mean Platelet Volume 11.4 fL (9.1-12.4); NEUTROPHILS ABSOLUTE AUTO 10.92 K/mm3 (1.96-9.15); NEUTROPHILS PERCENT AUTO 71 % (41-73); Platelet Count 216 K/mm3 (150-400); RDW Coefficient Variation 13.2 % (11.7-14.2); RDW Standard Deviation 43.9 fL (35.1-46.3); Red Blood Cell Count 4.01 M/mm3 (3.80-5.20); White Blood Cell Count 15.34 K/mm3 (4.00-11.30)
[2024-01-12 05:51] LABS: Bun/Creatinine Ratio 52.4 (12.0-20.0); Calcium, Blood 8.9 mg/dL (8.5-10.1); Creatinine, Blood 0.65 mg/dL (0.40-1.00)
--- NOTE | 2024-01-12 05:51 | NUR ---
PT TRNASFERED TO RM [id number] WITH ALL BELONGINGS
--- NOTE | 2024-01-12 06:01 | NUR ---
[id number] PATIENT ARRIVED VIA W/C AFTER PHONE REPORT. ABLE TO AMB TO BR FOR VOID BEFORE GETTTING INTO BED. O2/4L/NC CONNECTED. WANTS TO SLEEP SO TURNED DOWN LIGHTS. BED LOW AND CALL LIGHT NEAR.
[2024-01-12 07:01] VITALS: BP 108/54
[2024-01-12] MEDS ORDERED: Acetaminophen325 M1 PO (10:44)
[2024-01-12] MEDS ORDERED: ROBITUSSIN DM SYRUP PO (10:48)
[2024-01-12] MEDS ORDERED: Nicoderm Cq1 EACH TOP (10:49)
[2024-01-12] MEDS ORDERED: VISBIOME 112.51 EACH PO (10:50)
[2024-01-12] MEDS ORDERED: K-Dur20 MEQ PO (10:50)
[2024-01-12] MEDS ORDERED: Prednisone10 MG PO (10:52)
--- NOTE | 2024-01-12 12:02 | NUR ---
DISCUSSED DISCHARGE INSTRUCTIONS WITH PT AND HER . MEDICATIONS FAXED TO [facility] PER REQUEST. PT'S BROUGHT HER TRAVEL OXYGEN TANK FOR TRANSPORTATION HOME AND IS PROVIDING TRANSPORT VIA PERSONAL VEHICLE. ALL PERSONAL BELONGINGS SENT HOME WITH PT. NO IV IN PLACE, REMOVED PRABHAKAR WRAP FROM LAB DRAWS. PT TRANSPORTED TO PERSONAL VEHICLE VIA WHEELCHAIR.
== END 2024-01-12 12:23 | disposition home health service (06) | DRG 189 ==
LOC: ER 22:41 → ERHOLD 01-06 00:05 → PCU 01-06 00:05 → SURS 01-11 14:17 → MEDS 01-12 05:43 → ENPENDDIS 01-12 10:29 → MEDS 01-12 12:23
PROVIDERS: Emergency Medicine; Internal Medicine; ADMIT Internal Medicine
PROC: 5A09457 Assistance with Respiratory Ventilation, 24-96 Consecutive Hours, Continuous Positive Airway Pressure (ICD-10-PCS; principal; 2024-01-06)
PROC: 5A0935A Assistance with Respiratory Ventilation, Less than 24 Consecutive Hours, High Flow/Velocity Cannula (ICD-10-PCS; 2024-01-08)
DX: J96.21 Acute and chronic respiratory failure with hypoxia (principal); J96.22 Acute and chronic respiratory failure with hypercapnia; J43.9 Emphysema, unspecified; Z99.81 Dependence on supplemental oxygen; F31.9 Bipolar disorder, unspecified; E03.9 Hypothyroidism, unspecified; E78.5 Hyperlipidemia, unspecified; F17.210 Nicotine dependence, cigarettes, uncomplicated; Z85.3 Personal history of malignant neoplasm of breast; Z88.8 Allergy status to other drugs, medicaments and biological substances; Z88.6 Allergy status to analgesic agent; Z79.899 Other long term (current) drug therapy; Z98.890 Other specified postprocedural states
CPT/HCPCS: 0241U; 36415; 36600; 71045; 80048; 80053; 82803; 83880; 84484; 85025; 93005; 93010; 94640; 94644; 94660; 94664; 94760; 94762; 96374; 97116; 97162; 97165; 97530; 99285-25; A9270; J0456; J0696; J1650; J1940; J2060; J2405; J2919; J3475; J7050; J7512